=== PATIENT | male | born 1940 | race Caucasian/White ===

== ENCOUNTER 2017-02-20 07:32 | Emergency (ER) | payer OTHER ==
--- NOTE | 2017-02-20 07:47 | PDOC ---
History of Present Illness - General History Source: Patient, Family Exam Limitations: Clinical Condition - History of Present Illness Initial Comments: 02/20/17 09:54 The patient is a 76 year old male brought via EMS and presenting with his son, with a significant past medical history of, who presents to the emergency department with a possible stroke. Upon arrival EMS states that the patient went to bed at 11pm but awoke again around 3am to watch TV, going to sleep once again at 4:30am. The patient awoke this morning with the inability to get up from bed according to his son, as well as right sided facial droop and weakness on the left side of his body. Upon presentation the patient is unable to lift his left upper extremity and has severe difficulty in lifting his left lower extremity. The son notes that on baseline the patient is able to ambulate without difficulty or assistance and speak without difficulty. The patient is of Japanese decent and lives at home with son and . Allergies: None Past surgical history: None reported Social history: No alcohol, tobacco or drug use reported <Dano Wayne - Last Filed: 02/20/17 12:27> - General History Source: Patient, Family - History of Present Illness Initial Comments: 02/20/17 08:55 CORRECTION: Initially, the patient and patient's son had told us that the patient had went to bed at 11 PM yesterday night. However, after the head CT, the patient's son then had confirmed was that the patient had woke up at 4:00 in the morning in his usual state of health without complaint. He cannot go back to sleep so watch television. At 4:30, the patient went back to bed. He had repeated this to us several times and confirmed it. <Aydin Shahid - Last Filed: 03/07/17 08:19> - General Chief Complaint: CVA/TIA Stated Complaint: CVA/TIA Time Seen by Provider: 02/20/17 07:34 Past History <Dano Wayne - Last Filed: 02/20/17 12:27> <Aydin Shahid - Last Filed: 03/07/17 08:19> - Past Medical History Allergies/Adverse Reactions: Allergies Allergy/AdvReac Type Severity Reaction Status Date / Time No Known Allergies Allergy Verified 02/20/17 07:36 Review of Systems - Review of Systems Able to Perform ROS?: No Comments:: 02/20/17 09:55 ROS unable to obtain due to current medical condition <SalbernardoCathiDano Jennifer - Last Filed: 02/20/17 12:27> *Physical Exam - Vital Signs Last Vital Signs Temp Pulse Resp BP Pulse Ox 97.6 F 57 L 20 133/77 100 02/20/17 07:43 02/20/17 07:43 02/20/17 08:41 02/20/17 07:43 02/20/17 08:41 - Physical Exam Comments: 02/20/17 09:55 GENERAL: Awake, alert, and oriented HEAD: No signs of trauma, normocephalic, atraumatic EYES: PERRLA, EOMI, sclera anicteric, conjunctiva clear ENT: Auricles normal inspection, hearing grossly normal, nares patent, oropharynx clear without exudates. Moist mucosa NECK: Normal ROM, supple, no lymphadenopathy, JVD, or masses LUNGS: No distress, clear to auscultation bilaterally HEART: Regular rate and rhythm, normal S1 and S2, no murmurs, rubs or gallops, peripheral pulses normal and equal bilaterally. ABDOMEN: Soft, nontender, normoactive bowel sounds. No guarding, no rebound. No masses EXTREMITIES: Normal inspection, Normal range of motion, no edema. No clubbing or cyanosis. NEUROLOGICAL: (+) Refer to stroke scale. SKIN: Warm, Dry, normal turgor, no rashes or lesions noted. <Dano Wayne - Last Filed: 02/20/17 12:27> NIH Stroke Scale - Last Known Well Date/Time & Onset Date Last Known Well: 02/19/17 Time Last Known Well: 23:00 - Initial Evaluation Level of consciousness: Alert Ask patient the month and their age: Both incorrect Ask patient to open & close eyes; make fist and let go: Obeys both correctly Best gaze (horizontal eye movement): Partial gaze palsy Visual field testing: No visual field loss Facial paresis (Show teeth/raise eyebrows/close eyes tight): Partial paralysis ( total or near paralysis of lower face) Motor Function: Left Arm: No effort against gravity Motor Function: Right Arm: Normal (extends arm 90 (or 45) degrees for 10 seconds without drift Motor Function: Left Leg: No effort against gravity Motor Function: Right Leg: Normal (extends leg 30 degrees for 5 seconds without drift) Limb Ataxia: No ataxia Sensory(Use pinprick test arms,legs,trunk,face/side to side): Normal Best language (Describe picture, name items, read sentences): Mild to moderate aphasia Dysarthria (read several words): Mild to moderate slurring of words Extinction and Inattention: No abnormality - Total Score NIH Stroke Scale Score: 13 <Aydin Shahid - Last Filed: 03/07/17 08:19> tPA Exclusion Checklist 0-3hr - Time Elapsed Date last known well: 02/20/17 Time last known well: 04:30 Elaspsed time: 15 Day(s) and 3 Hour(s) and 49 Minutes - Thrombolytic Therapy Candidate Is the patient eligible for Thrombolytic Therapy?: No - Ineligibility reason(s) Reasons No tPA given: Outside of window - delayed arrival <Aydin Shahid - Last Filed: 03/07/17 08:19> tPA Exclusion checklist 3-4.5h - Time Elapsed Date last known well: 02/20/17 Time last known well: 04:30 Elaspsed time: 15 Day(s) and 3 Hour(s) and 49 Minutes - Thrombolytic Therapy Candidate Is patient eligible for thrombolytic therapy: Yes - Exclusion Criteria 3-4.5 hr SBP greater than 185 or DBP greater than 110mmHg despite tx: No Recent IC/spinal surgery,head trauma or stroke<3mos.: No Hx IC hemorrhage, IC neoplasm, AV malformation or aneurysm: No Active internal bleeding: No Blding diathesis(low plt ct, inc PTT,INR>1.7 or use of NOAC): No Symptoms suggest subarachnoid hemorrhage: No CT demonstrates multilobar infarct(>1/3 cerebral hemiphere): No Arterial puncture at noncompressible site in previous 7 days: No Blood glucose concentration less than 50mg/dL (2.7mmol/L): No - Relative Exclusion Criteria 3-4.5 hr Life expectancy <1 yr or severe co-morbid illness: No : No Patient/family refused: No Rapid improvement: No Stroke severity too mild: No Recent acute DE (w/in previous 3 months): No Seizure at onset with postictal residual neuro impairments: No Major surgery or serious trauma w/in previous 14 days: No Recent GI or hemorrhage (w/in previous 21 days): No - Add'l Relative Exclusion 3-4.5 hr Age > 80: No Hx of both diabetes AND prior ischemic stroke: No Taking an oral anticoagulant regardless of INR: No NIHSS >25: No <Aydin Shahid - Last Filed: 03/07/17 08:19> Heart Score/ECG Review #1 ECG reviewed & interpreted by me at: 07:40 02/20/17 09:00 NSR 57, no std/mahi, T wave flat III, normal axis, normal intervals, QTC 418 msec <Aydin Shahid - Last Filed: 03/07/17 08:19> Critical Care Time/MDM Note - Medical Decision Making Note: 02/20/17 08:[address] Reviewed by: Dr. Mega Elliott Impression: No evidence of acute intracranial hemorrhage, edema, midline shift, mass effect or skull fracture. No CT evidence of acute territorial infarction. Chest X-Ray Reviewed by: Dr. Mega Elliott Impression: No evidence of active pulmonary disease. Brain CTA Reviewed by: Dr. Kemar Thakkar Impression: There is no enhancement of the distal right internal carotid artery consistent with proximal occlusion / severe stenosis, the level of which should be determined with CTA of the neck. Normal enhancement of the right anterior and middle cerebral artery due to flow through the anterior communicating artery. <Dano Wayne - Last Filed: 02/20/17 12:27> Total Critical Care Time: 60 Critical Care Statement: The care of this patient involved high complexity decision making to prevent further life threatening deterioration of the patient 's condition and/or to evalute & treat vital organ system(s) failure or risk of failure. - Medical Decision Making Note: 02/20/17 07:48 A portion of this note was documented by scribe services under my direction. I have reviewed the details of the note, within reason, and agree with the documentation with the following case summary and management plan written by me. Patient treated in the ED. Nursing notes are reviewed and incorporated into the medical decision-making. Vital signs reviewed. Peripheral IV access obtained by the nurse, laboratory studies are drawn and sent, reviewed and interpreted by myself. Vital Signs Temp Pulse Resp BP Pulse Ox 97.6 F 57 L 20 133/77 100 02/20/17 07:43 02/20/17 07:43 02/20/17 07:43 02/20/17 07:43 02/20/17 07:43 76-year-old male with no past medical history, no primary care physician brought in by EMS for stroke. The patient was in his usual state health yesterday. Went to bed at 11 PM yesterday night. Woke up this morning and noticed that he was having difficulty moving his left side. EMS was activated and brought the patient to the ED. Patient denies any pain. However, patient is noted to have some left-sided neglect, left-sided facial droop, left upper and left lower extremity weakness concerning for right MCA stroke. Patient does not take any medications. The patient's son reports that the patient's typically speaks without difficulty and ambulate without difficulty. The patient is outside the window for TPA. However, code gurrola was activated as patient may potentially be a candidate for interventional endovascular therapy. NIHSS 13. We'll discuss the case with a neurologist once stat head CT is obtained. 02/20/17 09:03 After speaking with the patient's family again, the time of onset was actually at 4:30 AM. The patient awoke at 4:00 in morning in his usual state of health and cannot go to sleep so was watching television until 4:30 when he went to bed. So the patient is within the four and half hour window. Stat CT head negative for hemorrhage. And he qualified for TPA. I and spoken and discussed the case with Dr. Barrientos. Patient qualifies for TPA. States that plain this or bubble 100, patient can be TPA. I had a lengthy discussion regarding the risks and benefits of TPA with the patient's son and the patient. There is a 4-6% chance of bleeding with this medication. Patient's family and patient understands that this could potentially be fatal. The patient's consent for TPA. CBC, BMP 02/20/17 07:39 02/20/17 07:39 CMP Sodium 140 mmol/L (136-145) 02/20/17 07:39 Potassium 4.7 mmol/L (3.5-5.1) 02/20/17 07:39 Chloride 105 mmol/L (98-107) 02/20/17 07:39 Carbon Dioxide 25 mmol/L (21-32) 02/20/17 07:39 Anion Gap 10 (8-16) 02/20/17 07:39 BUN 27 mg/dL (7-18) H 02/20/17 07:39 Creatinine 1.2 mg/dL (0.7-1.3) 02/20/17 07:39 Creat Clearance w eGFR 59.02 (>60) 02/20/17 07:39 POC Glucometer 112.42728 UNITS (()) 02/20/17 07:41 Random Glucose 103 mg/dL (74-106) 02/20/17 07:39 Calcium 9.2 mg/dL (8.5-10.1) 02/20/17 07:39 Total Bilirubin 0.4 mg/dL (0.2-1.0) 02/20/17 07:39 AST 51 U/L (15-37) H 02/20/17 07:39 ALT 88 U/L (12-78) H 02/20/17 07:39 Alkaline Phosphatase 61 U/L (45-117) 02/20/17 07:39 Creatine Kinase 222 IU/L (39-308) 02/20/17 07:39 Creatine Kinase Index 1.7 % (0.0-5.0) 02/20/17 07:39 CK-MB (CK-2) 3.963 ng/ml (0.5-3.6) H 02/20/17 07:39 Troponin I < 0.02 ng/ml (0.00-0.05) 02/20/17 07:39 Total Protein 7.1 g/dl (6.4-8.2) 02/20/17 07:39 Albumin 3.9 g/dl (3.4-5.0) 02/20/17 07:39 Triglycerides 134 mg/dL (35-160) 02/20/17 07:39 Cholesterol 260 mg/dL (50-200) H 02/20/17 07:39 Total LDL Cholesterol 189 mg/dL (5-100) H 02/20/17 07:39 HDL Cholesterol 53 mg/dl (29-89) 02/20/17 07:39 TPA given at 8:32 am. (Within the 4.5 hour cleo). Will obtain a CTA head to see if pt has proximal occlusion that would potentially necessitate endovascular intervention. 02/20/17 12:12 CT angiogram of the brain demonstrates distal right internal carotid artery consistent with proximal occlusion. Has normal enhacement right CHE and MCA. Case is discussed with stroke fellow at [facility] Dr. Urrutia who accepts the patient for potential IR to [facility] under attending Dr. Carmona. Case discussed with ED attending Dr. Shea who accepts the patient. Family agrees with plan and for transfer. <Aydin Shahid - Last Filed: 03/07/17 08:19> Discharge Disposition - Transfer to Acute Care Facility Transfer comment: 02/20/17 10:08 Documentation prepared by Dano Wayne, acting as medical referral coordinator for Aydin Shahid MD <Dano Wayne - Last Filed: 02/20/17 12:27> - Transfer to Acute Care Facility Receiving Facility: [facility] Accepting Physician:: Dr. Cole <Aydin Shahid - Last Filed: 03/07/17 08:19> - Diagnosis Cerebrovascular accident (CVA) Qualifiers: CVA mechanism: occlusion Precerebral and cerebral artery: carotid artery Laterality of affected vessel: right Qualified Code(s): I63.231 - Cerebral infarction due to unspecified occlusion or stenosis of right carotid arteries - Discharge Dispostion Disposition: TRANSFER ACUTE CARE/OTHER HOSP Condition at time of disposition: Stable
[2017-02-20] MEDS ORDERED: ASPIRIN 325 MG TABLET ONE (08:04)
[2017-02-20] MEDS ORDERED: ALTEPLASE 100MG 100 MG IVPB ONE (08:11)
[2017-02-20 08:14] VITALS: BMI 27.3
[2017-02-20 08:18] LABS: BASOPHIL 0.6 % (0-2.0); EOSINOPHIL 2.4 % (0-4.5); MCH 28.4 pg (25.7-33.7); MCHC 33.5 g/dl (32.0-35.9); MEAN CELL VOLUME 84.9 fl (80-96); MEAN PLT VOLUME 7.8 fl (7.5-11.1); NEUTROPHILS 64.9 % (42.8-82.8); PLATELET COUNT 199 K/MM3 (134-434); RDW 14.1 % (11.9-15.9); WHITE BLOOD COUNT 6.6 K/mm3 (4.0-10.0)
[2017-02-20 08:25] LABS: CALCIUM 9.2 mg/dL (8.5-10.1)
[2017-02-20 08:26] LABS: ALBUMIN 3.9 g/dl (3.4-5.0); ANION GAP 10 (8-16); CO2 25 mmol/L (21-32); GLUCOSE,RANDOM 103 mg/dL (74-106)
[2017-02-20 08:29] LABS: CHOLESTEROL 260 mg/dL (50-200); COCKROFT - GAULT 61.42; CREATININE 1.2 mg/dL (0.7-1.3); SGOT/AST 51 U/L (15-37); SGPT/ALT 88 U/L (12-78)
[2017-02-20 08:31] LABS: ALK PHOS 61 U/L (45-117); BILIRUBIN,TOTAL 0.4 mg/dL (0.2-1.0); TOT PROT 7.1 g/dl (6.4-8.2)
[2017-02-20 08:33] LABS: LDL CHOLESTEROL (ONLY SJRH) 189 mg/dL (5-100)
[2017-02-20 08:34] LABS: INR 0.98 (0.82-1.09); PROTHROMBIN TIME (PATIENT) 10.8 SEC (9.98-11.88); TROPONIN I < 0.02 ng/ml (0.00-0.05)
[2017-02-20] MEDS ORDERED: ALTEPLASE 50 MG VIAL IVPB ONE ×2 (08:47)
--- NOTE | 2017-02-20 11:35 | CONSULT ---
Consult - text type - Consultation Consultation Note: Neurology History of Present Illness 76 year old male brought via EMS and presenting with his son, with a significant past medical history of, who presents to the emergency department with a possible stroke. Upon arrival EMS states that the patient went to bed at 11pm initially, the patient and patient's son had told the ER that the patient had went to bed at 11 PM yesterday night. However, after the head CT, the patient's son then had confirmed was that the patient had woke up at 4:00 in the morning in his usual state of health without complaint. At 4:30, the patient went back to bed. The patient completed CT head which did not show acute changes. I spoke with Dr. Shahid several times throughout and Dr. Shahid spoke to family in detail about TPA treatment for acute CVA. Recommended labs be confirmed and patient family be explained risks and benefits and they consented. Patient was given TPA within 4.[address] Shahid. During my visit/evaluation this morning no significant improvement in symptoms but no adverse events. *Physical Exam Last Vital Signs Temp Pulse Resp BP Pulse Ox 97.6 F 57 L 20 133/77 100 02/20/17 07:43 02/20/17 07:43 02/20/17 08:41 02/20/17 07:43 02/20/17 08:41 GENERAL: Awake, alert, and oriented HEAD: No signs of trauma, normocephalic, atraumatic EYES: PERRLA, EOMI, sclera anicteric, conjunctiva clear ENT: Auricles normal inspection, hearing grossly normal, nares patent, oropharynx clear without exudates. Moist mucosa NECK: Normal ROM, supple, no lymphadenopathy, JVD, or masses LUNGS: No distress, clear to auscultation bilaterally HEART: Regular rate and rhythm, normal S1 and S2, no murmurs, rubs or gallops, peripheral pulses normal and equal bilaterally. ABDOMEN: Soft, nontender, normoactive bowel sounds. No guarding, no rebound. No masses EXTREMITIES: Normal inspection, Normal range of motion, no edema. No clubbing or cyanosis. NEUROLOGICAL: (+) Refer to stroke scale. SKIN: Warm, Dry, normal turgor, no rashes or lesions noted. CBCD WBC 6.6 K/mm3 (4.0-10.0) 02/20/17 07:39 RBC 5.28 M/mm3 (4.00-5.60) 02/20/17 07:39 Hgb 15.0 GM/dL (11.7-16.9) 02/20/17 07:39 Hct 44.8 % (35.4-49) 02/20/17 07:39 MCV 84.9 fl (80-96) 02/20/17 07:39 MCHC 33.5 g/dl (32.0-35.9) 02/20/17 07:39 RDW 14.1 % (11.9-15.9) 02/20/17 07:39 Plt Count 199 K/MM3 (134-434) 02/20/17 07:39 MPV 7.8 fl (7.5-11.1) 02/20/17 07:39 CMP Sodium 140 mmol/L (136-145) 02/20/17 07:39 Potassium 4.7 mmol/L (3.5-5.1) 02/20/17 07:39 Chloride 105 mmol/L (98-107) 02/20/17 07:39 Carbon Dioxide 25 mmol/L (21-32) 02/20/17 07:39 Anion Gap 10 (8-16) 02/20/17 07:39 BUN 27 mg/dL (7-18) H 02/20/17 07:39 Creatinine 1.2 mg/dL (0.7-1.3) 02/20/17 07:39 Creat Clearance w eGFR 59.02 (>60) 02/20/17 07:39 Calcium 9.2 mg/dL (8.5-10.1) 02/20/17 07:39 Total Bilirubin 0.4 mg/dL (0.2-1.0) 02/20/17 07:39 AST 51 U/L (15-37) H 02/20/17 07:39 ALT 88 U/L (12-78) H 02/20/17 07:39 Alkaline Phosphatase 61 U/L (45-117) 02/20/17 07:39 Total Protein 7.1 g/dl (6.4-8.2) 02/20/17 07:39 Albumin 3.9 g/dl (3.4-5.0) 02/20/17 07:39 CT head without acute changes Plan: 76 year old male brought via EMS and presenting with his son, with a significant past medical history of, who presents to the emergency department with a possible stroke. Upon arrival EMS states that the patient went to bed at 11pm initially, the patient and patient's son had told the ER that the patient had went to bed at 11 PM yesterday night. However, after the head CT, the patient's son then had confirmed was that the patient had woke up at 4:00 in the morning in his usual state of health without complaint. At 4:30, the patient went back to bed. The patient completed CT head which did not show acute changes. I spoke with Dr. Shahid several times throughout and Dr. Shahid spoke to family in detail about TPA treatment for acute CVA. Recommended labs be confirmed and patient family be explained risks and benefits and they consented. Patient was given TPA within 4.[address] Shahid. During my visit/evaluation this morning no significant improvement in symptoms but no adverse events. Patient to have CTA head and if possible for neuro-interventional transfer, Dr. Shahid will coordinate If patient remains, then ICU placement Monitor BP, goal is <160/90, no permissive HTN for TPA cases Repeat CT head in AM to confirm no bleed from TPA Neuro checks Q1hr CD, Echo MRI brain Start ASA tomorrow (patient given TPA, hold antiplatelet) PT/OT/may need rehab placement Speech/Swallow eval Lipid panel, statin DVT ppx Critical care 70 mins
[2017-02-20 12:04] VITALS: BP 136/78
[2017-02-20 12:59] VITALS: PULSE 50; TEMP 98.6
--- NOTE | 2017-02-20 13:05 | EKG ---
Test Reason : Blood Pressure : / mmHG Vent. Rate : 057 BPM Atrial Rate : 057 BPM P-R Int : 184 ms QRS Dur : 092 ms QT Int : 430 ms P-R-T Axes : 009 001 027 degrees QTc Int : 418 ms SINUS BRADYCARDIA OTHERWISE NORMAL ECG NO PREVIOUS ECGS AVAILABLE Confirmed by SCOTT CHEUNG MD ([id number]) on 02/20/2017 1:04:51 PM Referred By: Confirmed By:SCOTT CHEUNG MD
== END 2017-02-20 12:59 | disposition short-term general hospital (02) ==
LOC: JER 07:32
PROC: 3E033GC Introduction of Other Therapeutic Substance into Peripheral Vein, Percutaneous Approach (ICD-10-PCS; principal; 2017-02-20)
DX: I63.231 Cerebral infarction due to unspecified occlusion or stenosis of right carotid arteries (principal)
CPT/HCPCS: 36415; 70450-TC; 70496-TC; 71010-TC; 80053; 82465; 82550; 82553; 83718; 83721; 84478; 84484; 85025; 85610; 86850; 86900; 86901; 93005; 93010; 99285-25; J2997

== ENCOUNTER 2017-03-17 10:29 | Emergency (ER) | payer SELFPAY ==
[2017-03-17 10:45] VITALS: PULSE 65; TEMP 98.1; BMI 28.8
--- NOTE | 2017-03-17 13:33 | PDOC ---
History of Present Illness - General Chief Complaint: Pain Stated Complaint: THIGH PAIN s/p stroke History Source: Patient, Family Exam Limitations: Language Barrier - History of Present Illness Initial Comments: 03/17/17 13:22 03/17/17 13:37 This is a 76 yo M with PMH CVA 02/20/17 (R sided facial droop, left sided weakness, s/p tpa), who presents with R inner thigh pain that started this morning when he moved his leg to get out of bed. Pain is new, intermittant, only present when pressing on the inner thigh in affected are and when flexing and externally rotating leg. it is nonradiating and sharp. Patient denies weakness, numbness, paresthesia, loss of bowel control, recent long travel, trauma. He denies h/a, chest pain, Loc, palpitations, cough, sob, abd pain, testicular pain, groin pain. 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 Since tpa, patient has no residual neuro deficit. 03/17/17 13:39 Past History - Past Medical History Allergies/Adverse Reactions: Allergies Allergy/AdvReac Type Severity Reaction Status Date / Time No Known Allergies Allergy Verified 03/17/17 10:40 Home Medications: Ambulatory Orders Aspirin [ASA -] 81 mg PO DAILY 03/17/17 Atorvastatin Ca [Lipitor] 80 mg PO HS 03/17/17 Cardiac Disorders: No CVA: Yes (lt sided, no weakness) HTN: No Hypercholesterolemia: Yes - Psycho/Social/Smoking Cessation Hx Anxiety: No Suicidal Ideation: No Smoking History: Never smoked Have you smoked in the past 12 months: No Information on smoking cessation initiated: No Hx Alcohol Use: No Drug/Substance Use Hx: No Substance Use Type: None Review of Systems - Review of Systems Able to Perform ROS?: Yes Is the patient limited Nepalese proficient: Yes Constitutional: No: Chills, Fever, Weakness HEENTM: No: Difficulty Swallowing Respiratory: No: Cough, Orthopnea, Shortness of Breath, Hemoptysis Cardiac (ROS): No: Chest Pain, Edema, Irregular Heart Rate, Lightheadedness, Palpitations, Syncope ABD/GI: No: Abdominal Distended, Constipated, Diarrhea, Nausea, Vomiting, Abdominal cramping : No: Dysuria, Flank Pain Musculoskeletal: Yes: Muscle Pain. No: Back Pain, Joint Pain Integumentary: No: Lesions, Lumps, Pruritus, Rash Neurological: No: Headache, Numbness, Paresthesia, Tingling, Weakness, Ataxia Psychiatric: No: Anxiety Endocrine: No: Change in Weight Hematologic/Lymphatic: No: Blood Clots, Easy Bleeding All Other Systems: Reviewed and Negative *Physical Exam - Vital Signs Last Vital Signs Temp Pulse Resp BP Pulse Ox 98.1 F 65 18 136/81 100 03/17/17 10:42 03/17/17 10:42 03/17/17 10:42 03/17/17 10:42 03/17/17 10:42 - Physical Exam Comments: 03/17/17 13:44 GENERAL: NAD, aao x 3 HEENT: PERRLA EOMI Sclera anicteric CV: rrr S1S2 Pulm: cta b/l GI, soft, nontender, nondistended, no mass Neuro CN II-XII grossly intact, LE strength 5/5 b/l, sensation intact Musculoskeletal: r inner thigh tenderness in gracilis muscle area, illicited by pressure or external rotation with flexion of hip. no cord, edema, adenopathy, mass. Medical Decision Making - Medical Decision Making 03/17/17 13:22 Patient presents with clinical picture most consistent with muscle strain/spasm , possibly gracilis. r/o dvt although low suspicion order venous dupplex RLE. Patient and family reassured 03/17/17 13:46 03/17/17 14:48 Duplex negative for dvt. patient to be dcd home *DC/Admit/Observation/Transfer Diagnosis at time of Disposition: Muscle strain - Discharge Dispostion Disposition: HOME Condition at time of disposition: Good Admit: No - Patient Instructions Printed Discharge Instructions: Muscle Strain Additional Instructions: you do not have a blood vlot in your leg vein and your pain is due to a strained muscle. take a warm bath and apply icy-hot ointment if needed. Return to ER if you develop numbness or weakness.
--- NOTE | 2017-03-17 14:40 | PDOC ---
Attending Attestation - Resident Resident Name: Sindy Joya - ED Attending Attestation I have performed the following: I have examined & evaluated the patient, The case was reviewed & discussed with the resident, I agree w/resident's findings & plan, Exceptions are as noted - HPI HPI: 03/17/17 14:37 76-year-old male with past medical history of stroke, which I had evaluated him for approximately 3 weeks ago and sent him to [facility], presents with right inner groin pain since morning. Patient woke up and felt pain worsened with movements. States that abducting his hip causes pain. Denies injuries or falls. Denies swelling. - Physicial Exam PE: 03/17/17 14:39 GENERAL: Awake, alert, and fully oriented, in no acute distress. HEAD: No signs of trauma EYES: PERRLA, EOMI, sclera anicteric, conjunctiva clear ENT: Auricles normal inspection, hearing grossly normal, nares patent, oropharynx clear without exudates. NECK: Normal ROM, supple, no lymphadenopathy, JVD, or masses LUNGS: Breath sounds equal, clear to auscultation bilaterally. No wheezes, and no crackles HEART: Regular rate and rhythm, normal S1 and S2, no murmurs, rubs or gallops ABDOMEN: Soft, nontender, normoactive bowel sounds. No guarding, no rebound. No masses EXTREMITIES: Normal range of motion, no edema. No clubbing or cyanosis. No cords, erythema. TTP along the right gracilus muscle. Reproduced with abducting of the right leg. NEUROLOGICAL: Cranial nerves II through XII grossly intact. Normal speech, normal gait SKIN: Warm, Dry, normal turgor, no rashes or lesions noted. - Medical Decision Making 03/17/17 14:40 Patient's family was initially concerned for DVT. However, I have low suspicion for DVT. I agree with the resident that a likely suspect that this is a pulled right gracilus/satorius muscle. If duplex ultrasound is negative, patient can go home with supportive care and follow-up with his PMD.
[2017-03-17 15:15] VITALS: BP 128/79
== END 2017-03-17 15:31 | disposition home or self-care (01) ==
LOC: JER 10:29
DX: S76.811A Strain of other specified muscles, fascia and tendons at thigh level, right thigh, initial encounter (principal); X50.0XXA Overexertion from strenuous movement or load, initial encounter; Y93.89 Activity, other specified; Y92.013 Bedroom of single-family (private) house as the place of occurrence of the external cause; I69.892 Facial weakness following other cerebrovascular disease; I69.854 Hemiplegia and hemiparesis following other cerebrovascular disease affecting left non-dominant side
CPT/HCPCS: 93971-TC; 99284-25

== ENCOUNTER 2019-10-25 12:43 | Emergency (ER) | payer OTHER ==
--- NOTE | 2019-10-25 12:57 | PDOC ---
Attending Attestation - Resident Resident Name: Benny Head - HPI HPI: 10/25/19 14:02 Pt presents to the ED complaining of an episode of lightheadness and decreased responsiveness that lasted approximately 5 minutes. As per family, patient's eyes were open but he was not responding to questions. Now has no complaints. 10/25/19 19:18 - Physicial Exam PE: 10/25/19 19:19 gen: alert, NAD CV: rrr no m/r/g Pulm: CTA b/l Neuro: aaox3, moving all extremities, CN grossly intact, speech fluent and clear. - Medical Decision Making 10/25/19 19:20 Pt presents to the ED complaining of episode of lightheadness and decreased responsiveness. Differential includes syncope and seizure. LAbs checked to evaluate for electrolyte disturbance or infecvtion and are normal. CT checked to evaluate for bleed or space occupying lesion and is negative. Will discharge home with instructions to follow up with PCP.
[2019-10-25 13:18] VITALS: BP 177/94; PULSE 65; TEMP 97.8; BMI 31.9
--- NOTE | 2019-10-25 13:22 | PDOC ---
History of Present Illness - General Chief Complaint: Lightheaded Stated Complaint: DIZZINESS Time Seen by Provider: 10/25/19 12:54 - History of Present Illness Initial Comments: Mr. Mary is a 79 y/o male with PMH significant for CVA with mild LLE deficit brought in by family today for generalized weakness. Per family, he was at baseline yesterday. This morning, they reported that he appeared a little more pale than usual, and had some difficult getting up from the couch. Denies any fall or focal weakness. Pt denies any complaints or concerns at this time. No headache/dizziness/nausea/vomiting/diarrhea/dysuria/abdominal pain. No chest pain/shortness of breath. Patient reports that he is feeling at his baseline at this time. A&Ox3. Patient able to ambulate to the bathroom with assistance, which is his baseline as well. No changes in speech. No focal weakness or facial asymmetry. Past History - Past Medical History Allergies/Adverse Reactions: Allergies Allergy/AdvReac Type Severity Reaction Status Date / Time No Known Allergies Allergy Verified 03/17/17 10:40 Home Medications: Ambulatory Orders Aspirin [ASA -] 81 mg PO DAILY 03/17/17 Atorvastatin Ca [Lipitor] 80 mg PO HS 03/17/17 Cardiac Disorders: No CVA: Yes (lt sided, no weakness) COPD: No HTN: No Hypercholesterolemia: Yes - Psycho Social/Smoking Cessation Hx Smoking History: Never smoked Have you smoked in the past 12 months: No Hx Alcohol Use: No Drug/Substance Use Hx: No Substance Use Type: None Review of Systems - Review of Systems Comments:: GENERAL/CONSTITUTIONAL: No fever or chills. Mild generalized weakness. HEAD, EYES, EARS, NOSE AND THROAT: No change in vision. No change in hearing. No sore throat._ CARDIOVASCULAR: No chest pain or shortness of breath_ RESPIRATORY: Denies cough, hemoptysis_ GASTROINTESTINAL: No nausea, vomiting, diarrhea or constipation._ GENITOURINARY: No dysuria, frequency, or change in urination._ MUSCULOSKELETAL: No joint or muscle swelling or pain. No neck or back pain._ SKIN: No rash_ NEUROLOGIC: No headache, vertigo, loss of consciousness, or change in strength/ sensation._ ENDOCRINE: No increased thirst. No abnormal weight change_ HEMATOLOGIC/LYMPHATIC: No anemia, easy bleeding, or history of blood clots._ ALLERGIC/IMMUNOLOGIC: No hives or skin allergy._ *Physical Exam - Vital Signs Last Vital Signs Temp Pulse Resp BP Pulse Ox 97.8 F 65 16 177/94 H 96 10/25/19 12:50 10/25/19 12:50 10/25/19 12:50 10/25/19 12:50 10/25/19 12:50 - Physical Exam GENERAL: Awake, alert, and oriented to person/place/time, in no acute distress_ HEAD: No signs of trauma, normoc ephalic, atraumatic _ EYES: PERRLA, EOMI, sclera anicteric, conjunctiva clear_ ENT: Hearing grossly normal, nares patent, oropharynx clear without exudates. No uvular deviation. Moist mucosa_ NECK: Normal ROM, supple, no lymphadenopathy, JVD, or masses_ LUNGS: No distress, speaks in full sentences, clear to auscultation bilaterally _ HEART: Regular rate and rhythm, normal S1 and S2, no murmurs appreciated, peripheral pulses normal and equal bilaterally._ ABDOMEN: Soft, nontender, normoactive bowel sounds. No guarding, no rebound. No masses_ EXTREMITIES: Normal inspection, Normal range of motion, no edema. No clubbing or cyanosis_ NEUROLOGICAL: CN II-XII tested and intact. Sensation intact to sharp/dull differentiation in all extremities. Motor: Normal tone and bulk. No abnormal movements appreciated. No pronator drift. Strength tested and 5/5 in bilateral wrist flexion/extension, elbow flexion/extension, shoulder abduction, straight leg raise, knee flexion/ extension, ankle dorsiflexion/plantarflexion. Patient ambulates with a steady gait with assistance. Coordination: Finger to nose and heel to rc testing intact bilaterally. SKIN: Warm, Dry, normal turgor, no rashes or lesions noted_ ED Treatment Course - LABORATORY CBC & Chemistry Diagram: 10/25/19 13:20 10/25/19 13:20 - RADIOLOGY Radiology Studies Ordered: Category Date Time Status CHEST PA & LAT [RAD] Stat Radiology 10/25/19 13:14 Ordered Medical Decision Making - Medical Decision Making 10/25/19 13:24 EKG shows NSR, 65 bpm, no ST elevation, no axis deviation, QTc 426. 10/25/19 13:39 79M hx of CVA brought in by family today for generalized weakness. -cbc, cmp -ekg, trop, cxr -ua, ucx -IV fluids 10/25/19 13:50 Pt reassessed. Mildly unsteady when standing, but denies weakness, lightheadness , dizziness. Supine 159/83, HR 69 Sitting 153/82, HR 71 Standing 167/104, HR 80 10/25/19 17:31 CT head shows no acute intra cranial pathology, chronic right thalamic infarct compared to 2017. CXR shows no acute intra thoracic pathology. Labs reviewed. Pt reports feeling much improved. Plan to d/c home with PCP f/u for TSH levels. All questions answered. Return precautions given. Pt and family verbalized understanding and agreement with plan. Laboratory Tests 10/25/19 10/25/19 10/25/19 13:20 13:20 13:20 WBC 7.0 RBC 5.93 H Hgb 16.6 Hct 50.0 H MCV 84.3 MCH 28.0 MCHC 33.3 RDW 14.2 Plt Count 248 D MPV 7.6 Absolute Neuts (auto) 4.2 Neutrophils % 60.0 Lymphocytes % 28.1 Monocytes % 8.6 Eosinophils % 2.6 Basophils % 0.7 Nucleated RBC % 0 Sodium 138 Potassium 4.5 Chloride 105 Carbon Dioxide 27 Anion Gap 5 L BUN 21.3 H Creatinine 1.5 H Est GFR (CKD-EPI)AfAm 50.95 Est GFR (CKD-EPI)NonAf 43.96 Random Glucose 104 Calcium 9.1 Total Bilirubin 0.5 AST 32 ALT 63 H Alkaline Phosphatase 79 Creatine Kinase 132 Troponin I < 0.02 Total Protein 7.4 Albumin 3.9 TSH 17.90 H Urine Color Urine Appearance Urine pH Ur Specific [place] Urine Protein Urine Glucose (UA) Urine Ketones Urine Blood Urine Nitrite Urine Bilirubin Urine Urobilinogen Ur Leukocyte Esterase Urine WBC (Auto) Urine RBC (Auto) Urine Casts (Auto) U Epithel Cells (Auto) Urine Bacteria (Auto) 10/25/19 13:20 WBC RBC Hgb Hct MCV MCH MCHC RDW Plt Count MPV Absolute Neuts (auto) Neutrophils % Lymphocytes % Monocytes % Eosinophils % Basophils % Nucleated RBC % Sodium Potassium Chloride Carbon Dioxide Anion Gap BUN Creatinine Est GFR (CKD-EPI)AfAm Est GFR (CKD-EPI)NonAf Random Glucose Calcium Total Bilirubin AST ALT Alkaline Phosphatase Creatine Kinase Troponin I Total Protein Albumin TSH Urine Color Yellow Urine Appearance Clear Urine pH 5.0 Ur Specific [place] 1.020 Urine Protein Trace Urine Glucose (UA) Negative Urine Ketones Negative Urine Blood 2+ H Urine Nitrite Negative Urine Bilirubin Negative Urine Urobilinogen 0.2 Ur Leukocyte Esterase Negative Urine WBC (Auto) 1 Urine RBC (Auto) 4 Urine Casts (Auto) 4 U Epithel Cells (Auto) 0.6 Urine Bacteria (Auto) 1.2 Discharge - Discharge Information Problems reviewed: Yes Clinical Impression/Diagnosis: Dehydration Condition: Stable Disposition: HOME - Admission No - Follow up/Referral Referrals: Zak Hernandez MD [Staff Physician] - - Patient Discharge Instructions Additional Instructions: Please make a follow up appointment with your primary care doctor to follow up your thyroid levels. A referral has been provided here for you. If you experience any new, worsening or concerning symptoms, including weakness , loss of sensation, lethargy, disorientation, or any other concerns, please return to the emergency department. - Post Discharge Activity
[2019-10-25] MEDS ORDERED: SODIUM CHLORIDE 0.9% 500 ML INFUS.BAG IV ONE (13:30)
[2019-10-25 13:53] LABS: EPI CELLS 0.6 /HPF (0-5/HPF); HYALINE CASTS 4 /lpf (0-8); URINE APPEARANCE CLEAR; URINE BACTERIA 1.2 /hpf (NEGATIVE); URINE BILIRUBIN NEGATIVE (NEGATIVE); URINE COLOR YELLOW; URINE GLUCOSE (UA) NEGATIVE (NEGATIVE); URINE KETONE NEGATIVE (NEGATIVE); URINE LEUK ESTERASE NEGATIVE (NEGATIVE); URINE NITRITE NEGATIVE (NEGATIVE); URINE PROTEIN TRACE (NEGATIVE); URINE RBC 4 /hpf (0-4); URINE UROBILINOGEN 0.2 mg/dL (0.2-1.0); URINE WBC 1 /hpf (0-5)
[2019-10-25 13:54] LABS: BASO % 0.7 % (0-2.0); EOS % 2.6 % (0-4.5); HEMOGLOBIN 16.6 GM/dL (11.7-16.9); LYMPH % 28.1 % (8-40); MCHC 33.3 g/dl (32.0-35.9); MEAN CELL VOLUME 84.3 fl (80-96); MEAN PLT VOLUME 7.6 fl (7.5-11.1); MONO % 8.6 % (3.8-10.2); PLATELET COUNT 248 K/MM3 (134-434); RBC 5.93 M/mm3 (4.00-5.60); RDW 14.2 % (11.9-15.9)
[2019-10-25 14:46] LABS: ALBUMIN 3.9 g/dl (3.4-5.0); BILIRUBIN,TOTAL 0.5 mg/dL (0.2-1); BLOOD UREA NITROGEN 21.3 mg/dL (7-18); CALCIUM 9.1 mg/dL (8.5-10.1); CREATININE 1.5 mg/dL (0.55-1.3); POTASSIUM 4.5 mmol/L (3.5-5.1); TOT PROT 7.4 g/dl (6.4-8.2)
--- NOTE | 2019-10-25 15:47 | EKG ---
Test Reason : Blood Pressure : / mmHG Vent. Rate : 065 BPM Atrial Rate : 065 BPM P-R Int : 182 ms QRS Dur : 096 ms QT Int : 410 ms P-R-T Axes : 009 -17 031 degrees QTc Int : 426 ms NORMAL SINUS RHYTHM SEPTAL INFARCT , AGE UNDETERMINED ABNORMAL ECG WHEN COMPARED WITH ECG OF 20-FEB-2017 07:35, NONSPECIFIC T WAVE ABNORMALITY NO LONGER EVIDENT IN ANTERIOR LEADS Confirmed by Wes Ren ([id number]) on 10/25/2019 3:47:05 PM Referred By: Confirmed By:Wes Ren
== END 2019-10-25 17:38 | disposition home or self-care (01) ==
LOC: JER 12:43
DX: E86.0 Dehydration (principal); I69.854 Hemiplegia and hemiparesis following other cerebrovascular disease affecting left non-dominant side; E78.00 Pure hypercholesterolemia, unspecified; Z79.82 Long term (current) use of aspirin
CPT/HCPCS: 36415; 70450-TC; 71045-TC-FY; 80053; 81003; 82550; 84443; 84484; 85025; 87086; 93005; 93010; 99281-25

== ENCOUNTER 2019-11-10 22:44 | Inpatient (IN) | payer OTHER ==
[2019-11-10 23:33] LABS: BASO % 1.4 % (0-2.0); EOS % 2.6 % (0-4.5); HEMATOCRIT 47.1 % (35.4-49); HEMOGLOBIN 15.7 GM/dL (11.7-16.9); LYMPH % 37.2 % (8-40); MCHC 33.3 g/dl (32.0-35.9); MEAN PLT VOLUME 7.6 fl (7.5-11.1); NEUT % 49.8 % (42.8-82.8); PLATELET COUNT 248 K/MM3 (134-434); RBC 5.61 M/mm3 (4.00-5.60); RDW 14.6 % (11.9-15.9); WHITE BLOOD COUNT 8.6 K/mm3 (4.0-10.0)
[2019-11-10 23:45] LABS: INR 1.01 (0.83-1.09); PROTHROMBIN TIME (PATIENT) 11.9 SEC (9.7-13.0)
[2019-11-10 23:48] LABS: ACTIVATED PTT 36.3 SECONDS (25.2-36.5)
[2019-11-10 23:57] LABS: ALBUMIN 3.7 g/dl (3.4-5.0); BILIRUBIN,TOTAL 0.5 mg/dL (0.2-1); BLOOD UREA NITROGEN 22.3 mg/dL (7-18); CALCIUM 9.2 mg/dL (8.5-10.1); CREATININE 1.2 mg/dL (0.55-1.3); MAGNESIUM 1.9 mg/dL (1.8-2.4); POTASSIUM 3.9 mmol/L (3.5-5.1)
[2019-11-11 00:03] LABS: N-TERMINAL BNP 148.5 pg/ml (5-450)
--- NOTE | 2019-11-11 00:04 | PDOC ---
Documentation entered by Beka Davidson SCRIBE, acting as scribe for Milagro Terrazas DO. Milagro Terrazas DO: This documentation has been prepared by the Stuart toro Xhesika, SCRIBE, under my direction and personally reviewed by me in its entirety. I confirm that the documentation accurately reflects all work, treatment, procedures, and medical decision making performed by me. Attending Attestation - Resident Resident Name: Steve Stewart - ED Attending Attestation I have performed the following: I have examined & evaluated the patient, The case was reviewed & discussed with the resident, I agree w/resident's findings & plan, Exceptions are as noted - HPI HPI: 11/10/19 23:46 The patient is a 79 year old male with a significant PMH of CVA with mild LLE deficit who presents to the emergency department for L arm weakness since yesterday. Patient is a poor historian, but his son at bedside provides history. Son at bedside states the patient has been endorsing associated L leg weakness in terms of walking and has been more confused lately. The patient denies chest pain, shortness of breath, headache and dizziness. Denies fever, chills, cough, nausea, vomiting, diarrhea and constipation. Denies dysuria, frequency, urgency and hematuria. Allergies: NKDA - Physicial Exam PE: 11/10/19 23:46 GENERAL: Awake, alert, and fully oriented, in no acute distress HEAD: No signs of trauma EYES: PERRLA, EOMI, sclera anicteric, conjunctiva clear ENT: Auricles normal inspection, hearing grossly normal, nares patent, oropharynx clear without exudates. Moist mucosa NECK: Normal ROM, supple, no lymphadenopathy, JVD, or masses LUNGS: Breath sounds equal, clear to auscultation bilaterally. No wheezes, and no crackles HEART: Regular rate and rhythm, normal S1 and S2, no murmurs, rubs or gallops ABDOMEN: Soft, nontender, normoactive bowel sounds. No guarding, no rebound. No masses EXTREMITIES: Normal range of motion, no edema. No clubbing or cyanosis. No cords, erythema, or tenderness NEUROLOGICAL: Cranial nerves II through XII grossly intact. 5/5 strength and sensation of bilateral upper extremity. SKIN: Warm, Dry, normal turgor, no rashes or lesions noted. - Medical Decision Making 11/11/19 00:01 a/p: 79yo male with L arm weakness yesterday presents with his son debra -pt with prior hx of cva in the past resulting in L sided weakness -pt states unable to lift his arm yesterday -improved today -pt currently NIH 0 -no tpa -will send for head ct, labs, ekg, cxr -will send ua -will need TIA workup -will monitor and reassess 11/11/19 01:[address] neg labs reviewed tsh elevated, will add free t4 11/11/19 01:34 cxr negative but with motion artifact 11/11/19 02:04 ua neg microblog [facility] for tia work up Heart Score/ECG Review - ECG Intrepretation Comment:: 11/11/19 00:03 sinus rojas at 51, nl axis, lvh, q waves septally which are age indeterminate, no acute st/t wave findings NIH Stroke Scale - Last Known Well Date/Time & Onset Date Last Known Well: 11/09/19 - Initial Evaluation Level of consciousness: Alert Ask patient the month and their age: Answers both correctly Ask patient to open & close eyes; make fist and let go: Obeys both correctly Best gaze (horizontal eye movement): Normal Visual field testing: No visual field loss Facial paresis (Show teeth/raise eyebrows/close eyes tight): Normal symmetrical movement Motor Function: Left Arm: Normal Motor Function: Right Arm: Normal (extends arm 90 (or 45) degrees for 10 seconds without drift Motor Function: Left Leg: Normal (extends leg 30 degrees for 5 seconds without drift) Motor Function: Right Leg: Normal (extends leg 30 degrees for 5 seconds without drift) Limb Ataxia: No ataxia Sensory(Use pinprick test arms,legs,trunk,face/side to side): Normal Best language (Describe picture, name items, read sentences): No Aphasia Dysarthria (read several words): Normal articulation Extinction and Inattention: No abnormality - Total Score NIH Stroke Scale Score: 0 tPA Exclusion checklist 3-4.5h - Time Elapsed Date last known well: 11/09/19 - Thrombolytic Therapy Candidate Is patient eligible for thrombolytic therapy: No - Ineligibility reason(s) Reasons No tPA given: Outside of window - delayed arrival (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
--- NOTE | 2019-11-11 00:13 | PDOC ---
History of Present Illness - General Chief Complaint: Weakness Stated Complaint: WEAKNESS Time Seen by Provider: 11/10/19 23:16 History Source: Patient Exam Limitations: No Limitations - History of Present Illness Initial Comments: 11/11/19 00:13 79 y/o male with PMH significant for CVA with mild LLE deficit accompanied by family presents to the emergency department with LUE weakness that has been ongoing since yesterday. Per the son at bedside, the patient has been endorsing concurrent left leg weakness for the past 2 days, which is notable when he is ambulating. Per the patient, he denies generalized weakness and the following concurrent symptoms: fever, chills, SOB, chest pain, palpitations, nausea, vomiting, dysuria, hematuria, diarrhea, abdominal pain, headache, lightheadedness, and visual disturbance. Of note, the son stated his father ( the patient) has been more confused lately, mixing directions. Past History - Past Medical History Allergies/Adverse Reactions: Allergies Allergy/AdvReac Type Severity Reaction Status Date / Time No Known Allergies Allergy Verified 11/10/19 22:55 Home Medications: Ambulatory Orders Aspirin [ASA -] 81 mg PO DAILY 03/17/17 Atorvastatin Ca [Lipitor] 80 mg PO HS 03/17/17 Cardiac Disorders: No CVA: Yes (lt sided, no weakness) COPD: No HTN: No Hypercholesterolemia: Yes - Psycho Social/Smoking Cessation Hx Smoking History: Never smoked Have you smoked in the past 12 months: No Information on smoking cessation initiated: No Hx Alcohol Use: No Drug/Substance Use Hx: No Substance Use Type: None Review of Systems - Review of Systems Able to Perform ROS?: Yes Is the patient limited Albanian proficient: No Constitutional: No: Chills, Diaphoresis, Fever, Weakness HEENTM: No: Eye Pain, Ear Pain, Nose Pain, Throat Pain, Mouth Pain Respiratory: No: Cough, Shortness of Breath, Hemoptysis Cardiac (ROS): No: Chest Pain, Lightheadedness, Palpitations, Chest Tightness ABD/GI: No: Constipated, Diarrhea, Nausea, Rectal Bleeding, Vomiting, Tarry Stools : No: Burning, Dysuria, Hematuria Musculoskeletal: Yes: Muscle Weakness (LLE weakness at baseline. LUE weakness). No: Back Pain, Joint Pain, Neck Pain Integumentary: No: Bruising, Erythema, Rash Neurological: No: Headache, Numbness, Tingling, Tremors Psychiatric: No: Change in Appetite Endocrine: No: Unexplained Weight Loss Hematologic/Lymphatic: No: Anemia *Physical Exam - Vital Signs Last Vital Signs Temp Pulse Resp BP Pulse Ox 97.5 F L 53 L 16 131/61 96 11/10/19 22:53 11/10/19 22:53 11/10/19 22:53 11/10/19 22:53 11/10/19 22:53 - Physical Exam General Appearance: Yes: Nourished, Appropriately Dressed. No: Apparent Distress, Intoxicated HEENT: positive: EOMI, HARITHA, Normal ENT Inspection, Normal Voice, Symmetrical, TMs Normal, Pharynx Normal, Hearing Grossly Normal. negative: Pale Conjunctivae , Scleral Icterus (R), Scleral Icterus (L), Muffled/Hoarse voice, Pharyngeal Erythema, Tonsillar Exudate, Tonsillar Erythema, Nasal Congestion, Rhinorrhea, Sinus Tenderness, Excessive drooling Neck: positive: Trachea midline, Supple. negative: Tender, Lymphadenopathy (R) , Lymphadenopathy (L), Tender lateral, Tender midline Respiratory/Chest: positive: Lungs Clear, Normal Breath Sounds. negative: Chest Tender, Respiratory Distress, Accessory Muscle Use Cardiovascular: positive: Regular Rhythm, S1, S2, Bradycardia. negative: Systolic Murmur Gastrointestinal/Abdominal: positive: Normal Bowel Sounds, Flat, Soft. negative : Tender Lymphatic: negative: Adenopathy Musculoskeletal: positive: Normal Inspection. negative: CVA Tenderness, Vertebral Tenderness Extremity: positive: Normal Capillary Refill, Normal Inspection, Normal Range of Motion. negative: Tender, Swelling, Calf Tenderness Integumentary: positive: Normal Color, Dry, Warm Neurologic: positive: care rep II-XII NML intact, Fully Oriented, Alert, Normal Mood/ Affect, Normal Response, Motor Strength 5/5, Finger to Nose (intact b/l). negative: EOM Palsy, Facial Droop, Numbness, Sensory Deficit ED Treatment Course - LABORATORY CBC & Chemistry Diagram: 11/11/19 06:50 11/11/19 06:50 - ADDITIONAL ORDERS Additional order review: Laboratory Results 11/10/19 11/10/19 11/10/19 23:29 23:13 23:13 PT with INR 11.90 INR 1.01 PTT (Actin FS) 36.3 Sodium Potassium Chloride Carbon Dioxide Anion Gap BUN Creatinine Est GFR (CKD-EPI)AfAm Est GFR (CKD-EPI)NonAf POC Glucometer 71 Random Glucose Calcium Magnesium Total Bilirubin AST ALT Alkaline Phosphatase B-Natriuretic Peptide 148.5 Total Protein Albumin TSH 43.40 H D 11/10/19 23:13 PT with INR INR PTT (Actin FS) Sodium 141 Potassium 3.9 Chloride 109 H Carbon Dioxide 25 Anion Gap 7 L BUN 22.3 H Creatinine 1.2 Est GFR (CKD-EPI)AfAm 66.73 Est GFR (CKD-EPI)NonAf 57.57 POC Glucometer Random Glucose 69 L Calcium 9.2 Magnesium 1.9 Total Bilirubin 0.5 AST 24 ALT 50 Alkaline Phosphatase 69 B-Natriuretic Peptide Total Protein 7.0 Albumin 3.7 TSH 11/10/19 11/10/19 23:29 23:13 RBC 5.61 H MCV 84.0 MCHC 33.3 RDW 14.6 MPV 7.6 Neutrophils % 49.8 Lymphocytes % 37.2 D Monocytes % 9.0 Eosinophils % 2.6 Basophils % 1.4 POC Glucometer 71 Medical Decision Making - Medical Decision Making 79 y/o male with PMH significant for CVA with mild LLE deficit accompanied by family presents to the emergency department with LUE weakness that has been ongoing since yesterday. Initial vitals: Initial Vital Signs Temp Pulse Resp BP Pulse Ox 97.5 F L 53 L 16 131/61 96 11/10/19 22:53 11/10/19 22:53 11/10/19 22:53 11/10/19 22:53 11/10/19 22:53 Work up: patient presents to the emergency department with LUE weakness since yesterday Per the patient's timeline, the patient is not a candidate for code gurrola given outside the time frame and improvement of LUE weakness (was unable to lift it yesterday but can today). No tpa will be gien. NIHSS scale is 0 The patient has weakness in the arm. Will obtain head CT to rule out infarct vs hemorrhagic stroke. Patient denies palpitations and chest pain. Will obtain blood work to assess metabolic status which can cause weakness. Laboratory Tests 11/10/19 11/10/19 11/10/19 23:13 23:13 23:13 WBC 8.6 RBC 5.61 H Hgb 15.7 Hct 47.1 MCV 84.0 MCH 28.0 MCHC 33.3 RDW 14.6 Plt Count 248 MPV 7.6 Absolute Neuts (auto) 4.3 Neutrophils % 49.8 Lymphocytes % 37.2 D Monocytes % 9.0 Eosinophils % 2.6 Basophils % 1.4 Nucleated RBC % 0 PT with INR INR PTT (Actin FS) Sodium 141 Potassium 3.9 Chloride 109 H Carbon Dioxide 25 Anion Gap 7 L BUN 22.3 H Creatinine 1.2 Est GFR (CKD-EPI)AfAm 66.73 Est GFR (CKD-EPI)NonAf 57.57 POC Glucometer Random Glucose 69 L Calcium 9.2 Magnesium 1.9 Total Bilirubin 0.5 AST 24 ALT 50 Alkaline Phosphatase 69 B-Natriuretic Peptide 148.5 Total Protein 7.0 Albumin 3.7 TSH 43.40 H D Free T4 0.72 L Urine Color Urine Appearance Urine pH Ur Specific [place] Urine Protein Urine Glucose (UA) Urine Ketones Urine Blood Urine Nitrite Urine Bilirubin Urine Urobilinogen Ur Leukocyte Esterase Urine WBC (Auto) Urine RBC (Auto) Urine Casts (Auto) U Epithel Cells (Auto) Urine Bacteria (Auto) 11/10/19 11/10/19 11/11/19 23:13 23:29 01:36 WBC RBC Hgb Hct MCV MCH MCHC RDW Plt Count MPV Absolute Neuts (auto) Neutrophils % Lymphocytes % Monocytes % Eosinophils % Basophils % Nucleated RBC % PT with INR 11.90 INR 1.01 PTT (Actin FS) 36.3 Sodium Potassium Chloride Carbon Dioxide Anion Gap BUN Creatinine Est GFR (CKD-EPI)AfAm Est GFR (CKD-EPI)NonAf POC Glucometer 71 Random Glucose Calcium Magnesium Total Bilirubin AST ALT Alkaline Phosphatase B-Natriuretic Peptide Total Protein Albumin TSH Free T4 Urine Color Yellow Urine Appearance Clear Urine pH 5.0 Ur Specific [place] 1.023 Urine Protein Negative Urine Glucose (UA) 1+ H Urine Ketones Negative Urine Blood 1+ H Urine Nitrite Negative Urine Bilirubin Negative Urine Urobilinogen 0.2 Ur Leukocyte Esterase Negative Urine WBC (Auto) 1 Urine RBC (Auto) 2 Urine Casts (Auto) 4 U Epithel Cells (Auto) 0.6 Urine Bacteria (Auto) 1.7 Patient has borderline low glucose at 71 TSH elevated with low T4 consistent with hypothyroidism EKG: sinus bradycardia with q waves in V1-V2 which were present beforehand. No ST elevations or depressions Per imaging special investigation unit investigator report, head ct is negative for acute pathologies. Patient to be admitted to telemetry for suspected CVA vs TIA. Will need neurology work up and likely MRI. Discharge - Discharge Information Problems reviewed: Yes Clinical Impression/Diagnosis: TIA (transient ischemic attack) Condition: Fair - Follow up/Referral - Patient Discharge Instructions - Post Discharge Activity
[2019-11-11] MEDS ORDERED: DEXTROSE 50%-WATER - 25 GM/50 ML VIAL IVPUSH ONE (01:09)
[2019-11-11] MEDS ORDERED: DEXTROSE 50%-WATER 25 GM/50 ML DISP.SYRIN ONE (01:16)
[2019-11-11 01:54] LABS: EPI CELLS 0.6 /HPF (0-5/HPF); HYALINE CASTS 4 /lpf (0-8); URINE APPEARANCE CLEAR; URINE BACTERIA 1.7 /hpf (NEGATIVE); URINE BILIRUBIN NEGATIVE (NEGATIVE); URINE COLOR YELLOW; URINE GLUCOSE (UA) 1+ (NEGATIVE); URINE KETONE NEGATIVE (NEGATIVE); URINE LEUK ESTERASE NEGATIVE (NEGATIVE); URINE NITRITE NEGATIVE (NEGATIVE); URINE PROTEIN NEGATIVE (NEGATIVE); URINE RBC 2 /hpf (0-4); URINE UROBILINOGEN 0.2 mg/dL (0.2-1.0); URINE WBC 1 /hpf (0-5)
--- NOTE | 2019-11-11 03:00 | HP ---
<Nanda Loaiza - Last Filed: 11/11/19 05:58> CHIEF COMPLAINT: LUE weakness PCP: non [facility] HISTORY OF PRESENT ILLNESS: 79 y.o. M PMH CVA w/ LLE residual deficits presenting for new onset LUE weakness as well as increasing LLE weakness. This has been present for about 1 day. Patient is solely maori speaking, son present at bedside for translation. The patient does not regularly follow up with doctors and as per son was putting off these symptoms as he did not want to come to the hospital, but finally was convinced by his son to come to the ED. As per son he has also been a bit forgetful over the past few weeks. On ROS, denies any pain/ headaches / SOB/ palpitations/ cough/ nausea/ vomiting/ dizziness/ sensory deficits/ myalgias/ urinary or bowel changes/ weight changes. ER course was notable for: (1) CT Head: negative for acute bleeds or infarct (2) NIHSS 3 Recent Travel: denies PAST MEDICAL HISTORY: as per hpi PAST SURGICAL HISTORY: denies Social History: Smoking: denies Alcohol:denies Drugs: denies Allergies No Known Allergies Allergy (Verified 11/10/19 22:55) HOME MEDICATIONS: Home Medications Medication Instructions Recorded Aspirin [ASA -] 81 mg PO DAILY 03/17/17 Atorvastatin Ca [Lipitor] 80 mg PO HS 03/17/17 PHYSICAL EXAMINATION Vital Signs - 24 hr 11/10/19 22:53 Temperature 97.5 F L Pulse Rate 53 L Respiratory 16 Rate Blood Pressure 131/61 O2 Sat by Pulse 96 Oximetry (%) GENERAL: Awake, alert, and fully oriented, in no acute distress. HEENT: NCAT. Scler anicteric. MMM. EOMI. PERRLA. LUNGS: Breath sounds equal, clear to auscultation bilaterally. No wheezes, and no crackles. No accessory muscle use. HEART: Regular rate and rhythm, normal S1 and S2 without murmur, rub or gallop. ABDOMEN: Soft, nontender, not distended, normoactive bowel sounds EXTREMITIES: 2+ pulses, warm, well-perfused. No peripheral edema. NEUROLOGICAL: Cranial nerves II-XII intact. Normal speech. Normal gait. LUE & LLE motor drift, 4/5 strength & handgrip. R extremities 5/ motor. Sensory intact throughout. PSYCHIATRIC: Cooperative. Good eye contact. Appropriate mood and affect. SKIN: Warm, dry, normal turgor, no rashes or lesions noted, normal capillary refill. Laboratory Results - last 24 hr 11/10/19 11/10/19 11/10/19 23:13 23:13 23:13 WBC 8.6 RBC 5.61 H Hgb 15.7 Hct 47.1 MCV 84.0 MCH 28.0 MCHC 33.3 RDW 14.6 Plt Count 248 MPV 7.6 Absolute Neuts (auto) 4.3 Neutrophils % 49.8 Lymphocytes % 37.2 D Monocytes % 9.0 Eosinophils % 2.6 Basophils % 1.4 Nucleated RBC % 0 PT with INR INR PTT (Actin FS) Sodium 141 Potassium 3.9 Chloride 109 H Carbon Dioxide 25 Anion Gap 7 L BUN 22.3 H Creatinine 1.2 Est GFR (CKD-EPI)AfAm 66.73 Est GFR (CKD-EPI)NonAf 57.57 POC Glucometer Random Glucose 69 L Calcium 9.2 Magnesium 1.9 Total Bilirubin 0.5 AST 24 ALT 50 Alkaline Phosphatase 69 B-Natriuretic Peptide 148.5 Total Protein 7.0 Albumin 3.7 TSH 43.40 H D Free T4 0.72 L Urine Color Urine Appearance Urine pH Ur Specific [place] Urine Protein Urine Glucose (UA) Urine Ketones Urine Blood Urine Nitrite Urine Bilirubin Urine Urobilinogen Ur Leukocyte Esterase Urine WBC (Auto) Urine RBC (Auto) Urine Casts (Auto) U Epithel Cells (Auto) Urine Bacteria (Auto) 11/10/19 11/10/19 11/11/19 23:13 23:29 01:36 WBC RBC Hgb Hct MCV MCH MCHC RDW Plt Count MPV Absolute Neuts (auto) Neutrophils % Lymphocytes % Monocytes % Eosinophils % Basophils % Nucleated RBC % PT with INR 11.90 INR 1.01 PTT (Actin FS) 36.3 Sodium Potassium Chloride Carbon Dioxide Anion Gap BUN Creatinine Est GFR (CKD-EPI)AfAm Est GFR (CKD-EPI)NonAf POC Glucometer 71 Random Glucose Calcium Magnesium Total Bilirubin AST ALT Alkaline Phosphatase B-Natriuretic Peptide Total Protein Albumin TSH Free T4 Urine Color Yellow Urine Appearance Clear Urine pH 5.0 Ur Specific [place] 1.023 Urine Protein Negative Urine Glucose (UA) 1+ H Urine Ketones Negative Urine Blood 1+ H Urine Nitrite Negative Urine Bilirubin Negative Urine Urobilinogen 0.2 Ur Leukocyte Esterase Negative Urine WBC (Auto) 1 Urine RBC (Auto) 2 Urine Casts (Auto) 4 U Epithel Cells (Auto) 0.6 Urine Bacteria (Auto) 1.7 ASSESSMENT/PLAN: 79 y.o. M PMH CVA w/ LLE residual deficits presenting for new onset left sided weakness #CVA -CT head [facility] read negative for acute infarct or bleeds -giving 325mg ASA -high dose statin -neuro consulted-- dr. dover -f/u echo, carotid duplex -f/u brain mra non con -on no home meds -f/u lipid panel #Hypothyroidism -no reports of hypothyroid history -may benefit from initiating thyroid therapy -PCP f/u on discharge #FEN -no standing fluids -trend lytes replete prn -sodium controlled diet-- f/u S&S #PPX -heparin sq ATTENDING PHYSICIAN STATEMENT I saw and evaluated the patient. I reviewed the resident's note and discussed the case with the resident. I agree with the resident's findings and plan as documented. SUBJECTIVE: OBJECTIVE: ASSESSMENT AND PLAN: <Johnnie Joe - Last Filed: 11/11/19 06:17> CHIEF COMPLAINT: PCP: HISTORY OF PRESENT ILLNESS: ER course was notable for: (1) (2) (3) Recent Travel: PAST MEDICAL HISTORY: PAST SURGICAL HISTORY: Social History: Smoking: Alcohol: Drugs: Allergies No Known Allergies Allergy (Verified 11/10/19 22:55) HOME MEDICATIONS: Home Medications Medication Instructions Recorded Aspirin [ASA -] 81 mg PO DAILY 03/17/17 Atorvastatin Ca [Lipitor] 80 mg PO HS 03/17/17 REVIEW OF SYSTEMS CONSTITUTIONAL: Absent: fever, chills, diaphoresis, generalized weakness, malaise, loss of appetite, weight change HEENT: Absent: rhinorrhea, nasal congestion, throat pain, throat swelling, difficulty swallowing, mouth swelling, ear pain, eye pain, visual changes CARDIOVASCULAR: Absent: chest pain, syncope, palpitations, irregular heart rate, lightheadedness , peripheral edema RESPIRATORY: Absent: cough, shortness of breath, dyspnea with exertion, orthopnea, wheezing, stridor, hemoptysis GASTROINTESTINAL: Absent: abdominal pain, abdominal distension, nausea, vomiting, diarrhea, constipation, melena, hematochezia GENITOURINARY: Absent: dysuria, frequency, urgency, hesitancy, hematuria, flank pain, genital pain MUSCULOSKELETAL: Absent: myalgia, arthralgia, joint swelling, back pain, neck pain SKIN: Absent: rash, itching, pallor HEMATOLOGIC/IMMUNOLOGIC: Absent: easy bleeding, easy bruising, lymphadenopathy, frequent infections ENDOCRINE: Absent: unexplained weight gain, unexplained weight loss, heat intolerance, cold intolerance NEUROLOGIC: Absent: headache, focal weakness or paresthesias, dizziness, unsteady gait, seizure, mental status changes, bladder or bowel incontinence PSYCHIATRIC: Absent: anxiety, depression, suicidal or homicidal ideation, hallucinations. PHYSICAL EXAMINATION Vital Signs - 24 hr 11/10/19 11/11/19 22:53 05:04 Temperature 97.5 F L 98.1 F Pulse Rate 53 L Pulse Rate [ 64 Apical] Respiratory 16 19 Rate Blood Pressure 131/61 Blood Pressure 124/69 [Left Arm] O2 Sat by Pulse 96 98 Oximetry (%) GENERAL: Awake, alert, and fully oriented, in no acute distress. HEAD: Normal with no signs of trauma. EYES: Pupils equal, round and reactive to light, extraocular movements intact, sclera anicteric, conjunctiva clear. No lid lag. EARS, NOSE, THROAT: Ears normal, nares patent, oropharynx clear without exudates. Moist mucous membranes. NECK: Normal range of motion, supple without lymphadenopathy, JVD, or masses. LUNGS: Breath sounds equal, clear to auscultation bilaterally. No wheezes, and no crackles. No accessory muscle use. HEART: Regular rate and rhythm, normal S1 and S2 without murmur, rub or gallop. ABDOMEN: Soft, nontender, not distended, normoactive bowel sounds, no guarding, no rebound, no masses. No hepatomegaly or splenomegaly. MUSCULOSKELETAL: Normal range of motion at all joints. No bony deformities or tenderness. No CVA tenderness. UPPER EXTREMITIES: 2+ pulses, warm, well-perfused. No cyanosis. No clubbing. No peripheral edema. LOWER EXTREMITIES: 2+ pulses, warm, well-perfused. No calf tenderness. No peripheral edema. NEUROLOGICAL: Cranial nerves II-XII intact. Normal speech. Normal gait. PSYCHIATRIC: Cooperative. Good eye contact. Appropriate mood and affect. SKIN: Warm, dry, normal turgor, no rashes or lesions noted, normal capillary refill. Laboratory Results - last 24 hr 11/10/19 11/10/19 11/10/19 23:13 23:13 23:13 WBC 8.6 RBC 5.61 H Hgb 15.7 Hct 47.1 MCV 84.0 MCH 28.0 MCHC 33.3 RDW 14.6 Plt Count 248 MPV 7.6 Absolute Neuts (auto) 4.3 Neutrophils % 49.8 Lymphocytes % 37.2 D Monocytes % 9.0 Eosinophils % 2.6 Basophils % 1.4 Nucleated RBC % 0 PT with INR INR PTT (Actin FS) Sodium 141 Potassium 3.9 Chloride 109 H Carbon Dioxide 25 Anion Gap 7 L BUN 22.3 H Creatinine 1.2 Est GFR (CKD-EPI)AfAm 66.73 Est GFR (CKD-EPI)NonAf 57.57 POC Glucometer Random Glucose 69 L Calcium 9.2 Magnesium 1.9 Total Bilirubin 0.5 AST 24 ALT 50 Alkaline Phosphatase 69 B-Natriuretic Peptide 148.5 Total Protein 7.0 Albumin 3.7 TSH 43.40 H D Free T4 0.72 L Urine Color Urine Appearance Urine pH Ur Specific [place] Urine Protein Urine Glucose (UA) Urine Ketones Urine Blood Urine Nitrite Urine Bilirubin Urine Urobilinogen Ur Leukocyte Esterase Urine WBC (Auto) Urine RBC (Auto) Urine Casts (Auto) U Epithel Cells (Auto) Urine Bacteria (Auto) 11/10/19 11/10/19 11/11/19 23:13 23:29 01:36 WBC RBC Hgb Hct MCV MCH MCHC RDW Plt Count MPV Absolute Neuts (auto) Neutrophils % Lymphocytes % Monocytes % Eosinophils % Basophils % Nucleated RBC % PT with INR 11.90 INR 1.01 PTT (Actin FS) 36.3 Sodium Potassium Chloride Carbon Dioxide Anion Gap BUN Creatinine Est GFR (CKD-EPI)AfAm Est GFR (CKD-EPI)NonAf POC Glucometer 71 Random Glucose Calcium Magnesium Total Bilirubin AST ALT Alkaline Phosphatase B-Natriuretic Peptide Total Protein Albumin TSH Free T4 Urine Color Yellow Urine Appearance Clear Urine pH 5.0 Ur Specific [place] 1.023 Urine Protein Negative Urine Glucose (UA) 1+ H Urine Ketones Negative Urine Blood 1+ H Urine Nitrite Negative Urine Bilirubin Negative Urine Urobilinogen 0.2 Ur Leukocyte Esterase Negative Urine WBC (Auto) 1 Urine RBC (Auto) 2 Urine Casts (Auto) 4 U Epithel Cells (Auto) 0.6 Urine Bacteria (Auto) 1.7 ASSESSMENT/PLAN: Visit type - Emergency Visit Emergency Visit: Yes ED Registration Date: 11/11/19 Care time: The patient presented to the Emergency Department on the above date and was hospitalized for further evaluation of their emergent condition. - New Patient This patient is new to me today: Yes Date on this admission: 11/11/19 - Critical Care Critical Care patient: No ATTENDING PHYSICIAN STATEMENT I saw and evaluated the patient. I reviewed the resident's note and discussed the case with the resident. I agree with the resident's findings and plan as documented.
[2019-11-11] MEDS ORDERED: ASPIRIN 325 MG TABLET PO STA (04:44)
[2019-11-11] MEDS ORDERED: ASPIRIN 325 MG ENTERIC COATED TABLET (FP) ONE (04:48)
[2019-11-11] MEDS: HEPARIN NA (PORCINE) 5,000 UNITS/ML 1ML VIAL SQ SCH ×3 (05:01→21:30)
--- NOTE | 2019-11-11 05:58 | PN.NIHSS ---
NIH Stroke Scale - Initial Evaluation Level of consciousness: Alert Ask patient the month and their age: Answers one correctly Ask patient to open & close eyes; make fist and let go: Obeys both correctly Best gaze (horizontal eye movement): Normal Visual field testing: No visual field loss Facial paresis (Show teeth/raise eyebrows/close eyes tight): Normal symmetrical movement Motor Function: Left Arm: Drift Motor Function: Right Arm: Normal (extends arm 90 (or 45) degrees for 10 seconds without drift Motor Function: Left Leg: Drift Motor Function: Right Leg: Normal (extends leg 30 degrees for 5 seconds without drift) Limb Ataxia: No ataxia Sensory(Use pinprick test arms,legs,trunk,face/side to side): Normal Best language (Describe picture, name items, read sentences): No Aphasia Dysarthria (read several words): Normal articulation
[2019-11-11 07:54] LABS: BASO % 0.8 % (0-2.0); HEMATOCRIT 44.6 % (35.4-49); HEMOGLOBIN 14.8 GM/dL (11.7-16.9); LYMPH % 29.5 % (8-40); MCH 27.7 pg (25.7-33.7); MCHC 33.2 g/dl (32.0-35.9); MEAN CELL VOLUME 83.4 fl (80-96); MEAN PLT VOLUME 7.7 fl (7.5-11.1); MONO % 7.4 % (3.8-10.2); NEUT % 59.3 % (42.8-82.8); PLATELET COUNT 208 K/MM3 (134-434); RBC 5.34 M/mm3 (4.00-5.60); RDW 14.3 % (11.9-15.9); WHITE BLOOD COUNT 5.5 K/mm3 (4.0-10.0)
[2019-11-11 08:29] LABS: ALBUMIN 3.4 g/dl (3.4-5.0); BILIRUBIN,TOTAL 0.6 mg/dL (0.2-1); BLOOD UREA NITROGEN 19.8 mg/dL (7-18); CALCIUM 8.5 mg/dL (8.5-10.1); CREATININE 1.2 mg/dL (0.55-1.3); TOT PROT 6.4 g/dl (6.4-8.2)
--- NOTE | 2019-11-11 09:02 | CONSULT ---
Consult - text type - Consultation Consultation Note: Neurology CHIEF COMPLAINT: LUE weakness PCP: [facility] HISTORY OF PRESENT ILLNESS: 79 y.o. M PMH CVA w/ LLE residual deficits presented for new onset LUE weakness as well as increased LLE weakness. Patient is solely mexican speaking, son present at bedside for translation. The patient does not regularly follow up with doctors and as per son was putting off these symptoms as he did not want to come to the hospital, but finally was convinced by his son to come to the ED. As per son he has also been a bit forgetful over the past few weeks. On ROS , denies any pain/ headaches/ SOB/ palpitations/ cough/ nausea/ vomiting/ dizziness/ sensory deficits/ myalgias/ urinary or bowel changes/ weight changes. Head CT performed and showed nonhemorrhagic hypodensities in right frontoparietal irwin radiata/centrum semiovale concerning for recent internal border zone infarct. Chronic right thalamic lacunar infarct. No evidence of acute hemorrhage. Spoke with son in detail and informed him of the results and explained how these can be etiology for his deficits. The son indicated the patient was taking aspirin at home, likely 81 mg. He will confirm the dose and I informed him that we will nneed to increase his antiplatelet regimen and for now will have him on aspirin 325 mg daily. He completed carotid Dopplers this morning, report pending. MRI brain to be completed, MRA was ordered, will adjust to MRI brain. Lipid profile pending, patient on max dose statin for now. Recent Travel: Denies PAST MEDICAL HISTORY: As per hpi PAST SURGICAL HISTORY: Denies Family History: HTN Social History: Smoking: denies Alcohol:denies Drugs: denies REVIEW OF SYSTEMS CONSTITUTIONAL: Absent: fever, chills, diaphoresis, generalized weakness, malaise, loss of appetite, weight change HEENT: Absent: rhinorrhea, nasal congestion, throat pain, throat swelling, difficulty swallowing, mouth swelling, ear pain, eye pain, visual changes CARDIOVASCULAR: Absent: chest pain, syncope, palpitations, irregular heart rate, lightheadedness , peripheral edema RESPIRATORY: Absent: cough, shortness of breath, dyspnea with exertion, orthopnea, wheezing, stridor, hemoptysis GASTROINTESTINAL: Absent: abdominal pain, abdominal distension, nausea, vomiting, diarrhea, constipation, melena, hematochezia GENITOURINARY: Absent: dysuria, frequency, urgency, hesitancy, hematuria, flank pain, genital pain MUSCULOSKELETAL: Absent: myalgia, arthralgia, joint swelling, back pain, neck pain SKIN: Absent: rash, itching, pallor HEMATOLOGIC/IMMUNOLOGIC: Absent: easy bleeding, easy bruising, lymphadenopathy, frequent infections ENDOCRINE: Absent: unexplained weight gain, unexplained weight loss, heat intolerance, cold intolerance NEUROLOGIC: Absent: headache, focal weakness or paresthesias, dizziness, unsteady gait, seizure, mental status changes, bladder or bowel incontinence PSYCHIATRIC: Absent: anxiety, depression, suicidal or homicidal ideation, hallucinations. Allergies No Known Allergies Allergy (Verified 11/10/19 22:55) HOME MEDICATIONS: Home Medications Medication Instructions Recorded Aspirin [ASA -] 81 mg PO DAILY 03/17/17 Atorvastatin Ca [Lipitor] 80 mg PO HS 03/17/17 Active Medications Aspirin (Asa -) 325 mg PO DAILY [facility] Atorvastatin Calcium (Lipitor -) 80 mg PO HS [facility] Heparin Sodium (Porcine) (Heparin -) 5,000 unit SQ TID [facility] Last Admin: 11/11/19 05:01 Dose: 5,000 unit PHYSICAL EXAMINATION Vital Signs Period Temp Pulse Resp BP Sys/Tabares Pulse Ox Last 24 Hr 97.5 F-98.1 F 53-64 16-19 124-131/61-69 96-98 GENERAL: Awake, alert, and fully oriented, in no acute distress. HEENT: NCAT. Scler anicteric. MMM. EOMI. PERRLA. LUNGS: Breath sounds equal, clear to auscultation bilaterally. No wheezes, and no crackles. No accessory muscle use. HEART: Regular rate and rhythm, normal S1 and S2 without murmur, rub or gallop. ABDOMEN: Soft, nontender, not distended, normoactive bowel sounds EXTREMITIES: 2+ pulses, warm, well-perfused. No peripheral edema. NEUROLOGICAL: Cranial nerves II-XII intact. Normal speech. Normal gait. LUE & LLE motor drift, 4/5 strength & handgrip. R extremities 5/ motor. Sensory intact throughout. PSYCHIATRIC: Cooperative. Good eye contact. Appropriate mood and affect. SKIN: Warm, dry, normal turgor, no rashes or lesions noted, normal capillary refill. CBCD WBC 5.5 K/mm3 (4.0-10.0) 11/11/19 06:50 RBC 5.34 M/mm3 (4.00-5.60) 11/11/19 06:50 Hgb 14.8 GM/dL (11.7-16.9) 11/11/19 06:50 Hct 44.6 % (35.4-49) 11/11/19 06:50 MCV 83.4 fl (80-96) 11/11/19 06:50 MCHC 33.2 g/dl (32.0-35.9) 11/11/19 06:50 RDW 14.3 % (11.9-15.9) 11/11/19 06:50 Plt Count 208 K/MM3 (134-434) 11/11/19 06:50 MPV 7.7 fl (7.5-11.1) 11/11/19 06:50 CMP Sodium 138 mmol/L (136-145) 11/11/19 06:50 Potassium 4.0 mmol/L (3.5-5.1) 11/11/19 06:50 Chloride 109 mmol/L (98-107) H 11/11/19 06:50 Carbon Dioxide 20 mmol/L (21-32) L 11/11/19 06:50 Anion Gap 10 MMOL/L (8-16) 11/11/19 06:50 BUN 19.8 mg/dL (7-18) H 11/11/19 06:50 Creatinine 1.2 mg/dL (0.55-1.3) 11/11/19 06:50 Random Glucose 90 mg/dL (74-106) 11/11/19 06:50 Calcium 8.5 mg/dL (8.5-10.1) 11/11/19 06:50 Total Bilirubin 0.6 mg/dL (0.2-1) 11/11/19 06:50 AST 21 U/L (15-37) 11/11/19 06:50 ALT 45 U/L (13-61) 11/11/19 06:50 Alkaline Phosphatase 61 U/L (45-117) 11/11/19 06:50 Total Protein 6.4 g/dl (6.4-8.2) 11/11/19 06:50 Albumin 3.4 g/dl (3.4-5.0) 11/11/19 06:50 ASSESSMENT/PLAN: 79 y.o. M PMH CVA w/ LLE residual deficits presented for new onset LUE weakness as well as increased LLE weakness. Patient is solely mexican speaking, son present at bedside for translation. The patient does not regularly follow up with doctors and as per son was putting off these symptoms as he did not want to come to the hospital, but finally was convinced by his son to come to the ED. As per son he has also been a bit forgetful over the past few weeks. On ROS , denies any pain/ headaches/ SOB/ palpitations/ cough/ nausea/ vomiting/ dizziness/ sensory deficits/ myalgias/ urinary or bowel changes/ weight changes. Head CT performed and showed nonhemorrhagic hypodensities in right frontoparietal irwin radiata/centrum semiovale concerning for recent internal border zone infarct. Chronic right thalamic lacunar infarct. No evidence of acute hemorrhage. Spoke with son in detail and informed him of the results and explained how these can be etiology for his deficits. The son indicated the patient was taking aspirin at home, likely 81 mg. He will confirm the dose and I informed him that we will nneed to increase his antiplatelet regimen and for now will have him on aspirin 325 mg daily. He completed carotid Dopplers this morning, report pending. MRI brain to be completed, MRA was ordered, will adjust to MRI brain. Lipid profile pending, patient on max dose statin for now. physical therapy recommended,, may require short-term rehabilitation. Monitor blood pressure, maintain normotensive < 160/90 for now. DVT prophylaxis.
--- NOTE | 2019-11-11 09:56 | PN ---
Physical Exam: SUBJECTIVE: Patient seen and examined OBJECTIVE: Vital Signs Period Temp Pulse Resp BP Sys/Tabares Pulse Ox Last 24 Hr 97.5 F-98.1 F 53-64 16-19 124-131/61-69 96-98 GENERAL: The patient is awake, alert, and fully oriented, in no acute distress. LUNGS: Breath sounds equal, clear to auscultation bilaterally, no wheezes, no crackles, no accessory muscle use. HEART: Regular rate and rhythm, S1, S2 without murmur, rub or gallop. ABDOMEN: Obese, soft, nontender, nondistended, normoactive bowel sounds, no guarding, no rebound, no hepatosplenomegaly, no masses. EXTREMITIES: 2+ pulses, warm, well-perfused, no edema. NEUROLOGICAL: Cranial nerves II through XII grossly intact. Normal speech. Strength 4+/5 in LUE/LLE, 5/5 in RUE/RLE. Gait not observed. Laboratory Results - last 24 hr 11/10/19 11/10/19 11/10/19 23:13 23:13 23:13 WBC 8.6 RBC 5.61 H Hgb 15.7 Hct 47.1 MCV 84.0 MCH 28.0 MCHC 33.3 RDW 14.6 Plt Count 248 MPV 7.6 Absolute Neuts (auto) 4.3 Neutrophils % 49.8 Lymphocytes % 37.2 D Monocytes % 9.0 Eosinophils % 2.6 Basophils % 1.4 Nucleated RBC % 0 PT with INR INR PTT (Actin FS) Sodium 141 Potassium 3.9 Chloride 109 H Carbon Dioxide 25 Anion Gap 7 L BUN 22.3 H Creatinine 1.2 Est GFR (CKD-EPI)AfAm 66.73 Est GFR (CKD-EPI)NonAf 57.57 POC Glucometer Random Glucose 69 L Hemoglobin A1c % Calcium 9.2 Magnesium 1.9 Total Bilirubin 0.5 AST 24 ALT 50 Alkaline Phosphatase 69 B-Natriuretic Peptide 148.5 Total Protein 7.0 Albumin 3.7 Triglycerides Cholesterol Total LDL Cholesterol HDL Cholesterol TSH 43.40 H D Free T4 0.72 L Urine Color Urine Appearance Urine pH Ur Specific [place] Urine Protein Urine Glucose (UA) Urine Ketones Urine Blood Urine Nitrite Urine Bilirubin Urine Urobilinogen Ur Leukocyte Esterase Urine WBC (Auto) Urine RBC (Auto) Urine Casts (Auto) U Epithel Cells (Auto) Urine Bacteria (Auto) 11/10/19 11/10/19 11/11/19 23:13 23:29 01:36 WBC RBC Hgb Hct MCV MCH MCHC RDW Plt Count MPV Absolute Neuts (auto) Neutrophils % Lymphocytes % Monocytes % Eosinophils % Basophils % Nucleated RBC % PT with INR 11.90 INR 1.01 PTT (Actin FS) 36.3 Sodium Potassium Chloride Carbon Dioxide Anion Gap BUN Creatinine Est GFR (CKD-EPI)AfAm Est GFR (CKD-EPI)NonAf POC Glucometer 71 Random Glucose Hemoglobin A1c % Calcium Magnesium Total Bilirubin AST ALT Alkaline Phosphatase B-Natriuretic Peptide Total Protein Albumin Triglycerides Cholesterol Total LDL Cholesterol HDL Cholesterol TSH Free T4 Urine Color Yellow Urine Appearance Clear Urine pH 5.0 Ur Specific [place] 1.023 Urine Protein Negative Urine Glucose (UA) 1+ H Urine Ketones Negative Urine Blood 1+ H Urine Nitrite Negative Urine Bilirubin Negative Urine Urobilinogen 0.2 Ur Leukocyte Esterase Negative Urine WBC (Auto) 1 Urine RBC (Auto) 2 Urine Casts (Auto) 4 U Epithel Cells (Auto) 0.6 Urine Bacteria (Auto) 1.7 11/11/19 11/11/19 11/11/19 06:50 06:50 09:21 WBC 5.5 RBC 5.34 Hgb 14.8 Hct 44.6 MCV 83.4 MCH 27.7 MCHC 33.2 RDW 14.3 Plt Count 208 MPV 7.7 Absolute Neuts (auto) 3.3 Neutrophils % 59.3 Lymphocytes % 29.5 D Monocytes % 7.4 Eosinophils % 3.0 Basophils % 0.8 Nucleated RBC % 0 PT with INR INR PTT (Actin FS) Sodium 138 Potassium 4.0 Chloride 109 H Carbon Dioxide 20 L Anion Gap 10 BUN 19.8 H Creatinine 1.2 Est GFR (CKD-EPI)AfAm 66.73 Est GFR (CKD-EPI)NonAf 57.57 POC Glucometer Random Glucose 90 Hemoglobin A1c % 5.9 Calcium 8.5 Magnesium Total Bilirubin 0.6 AST 21 ALT 45 Alkaline Phosphatase 61 B-Natriuretic Peptide Total Protein 6.4 Albumin 3.4 Triglycerides Cancelled Cholesterol Cancelled Total LDL Cholesterol Cancelled HDL Cholesterol Cancelled TSH Free T4 Urine Color Urine Appearance Urine pH Ur Specific [place] Urine Protein Urine Glucose (UA) Urine Ketones Urine Blood Urine Nitrite Urine Bilirubin Urine Urobilinogen Ur Leukocyte Esterase Urine WBC (Auto) Urine RBC (Auto) Urine Casts (Auto) U Epithel Cells (Auto) Urine Bacteria (Auto) Active Medications Generic Name Dose Route Start Last Admin Trade Name Freq PRN Reason Stop Dose Admin Aspirin 325 mg 11/12/19 10:00 Asa - PO DAILY [facility] Atorvastatin Calcium 80 mg 11/11/19 22:00 Lipitor - PO HS [facility] Heparin Sodium (Porcine) 5,000 unit 11/11/19 06:00 11/11/19 05:01 Heparin - SQ 5,000 unit TID [facility] Administration ASSESSMENT/PLAN: This is a 79 year old man with a history of CVA who presented to the ED with left sided weakness. 1. Possible acute CVA - Head CT shows non-hemorrhagic hypodensities in right frontoparietal irwin radiata/centrum semiovale, chronic right thalamic lacunar infarct - Carotid dopplers, MRI of brain pending - Continue aspirin, Lipitor 2. Hypothyroidism - TSH 43.4, FT4 0.72 - Start Synthroid Visit type - Emergency Visit Emergency Visit: Yes ED Registration Date: 11/11/19 Care time: The patient presented to the Emergency Department on the above date and was hospitalized for further evaluation of their emergent condition. - New Patient This patient is new to me today: Yes Date on this admission: 11/11/19 - Critical Care Critical Care patient: No - Discharge Referral Referred to [facility] Med P.C[facility] No
--- NOTE | 2019-11-11 15:16 | EKG ---
Test Reason : Blood Pressure : / mmHG Vent. Rate : 051 BPM Atrial Rate : 051 BPM P-R Int : 194 ms QRS Dur : 100 ms QT Int : 460 ms P-R-T Axes : 034 -09 010 degrees QTc Int : 423 ms SINUS BRADYCARDIA MINIMAL VOLTAGE CRITERIA FOR LVH, MAY BE NORMAL VARIANT SEPTAL INFARCT (CITED ON OR BEFORE 25-OCT-2019) ABNORMAL ECG WHEN COMPARED WITH ECG OF 25-OCT-2019 13:03, NO SIGNIFICANT CHANGE WAS FOUND Confirmed by SCOTT CHEUNG MD ([id number]) on 11/11/2019 3:15:45 PM Referred By: Confirmed By:SCOTT CHEUNG MD
--- NOTE | 2019-11-11 15:28 | ECHO ---
Name: NIKO, EMMANUEL Exam:Adult Echocardiogram Study Date: 11/11/2019 02:10 PM Age: 79 yrs Reason For Study: CVA Height: 69 in Weight: 250 lb BSA: 2.3 m2 MMode/2D Measurements & Calculations IVSd: 1.1 cm Ao root diam: 3.2 cm LVIDd: 4.7 cm LA dimension: 3.5 cm LVIDs: 3.2 cm ACS: 1.7 cm LVPWd: 1.1 cm EDV(Teich): 100.1 ml LVOT diam: 2.5 cm ESV(Teich): 39.9 ml LAV (MOD-bp): 66.0 ml TAPSE: 2.1 cm RV S Corby: 12.5 cm/sec Doppler Measurements & Calculations MV E max corby: 63.2 cm/sec Ao V2 max: 133.0 cm/sec MV A max corby: 83.4 cm/sec Ao max P.1 mmHg MV E/A: 0.76 Ao V2 mean: 92.7 cm/sec MV dec time: 0.38 sec Ao mean P.9 mmHg Ao V2 VTI: 26.8 cm LYNDSEY(I,D): 4.5 cm2 LYNDSEY(V,D): 3.8 cm2 LV V1 max P.4 mmHg SV(LVOT): 120.4 ml LV V1 mean P.0 mmHg LV V1 max: 105.1 cm/sec LV V1 mean: 64.1 cm/sec LV V1 VTI: 25.0 cm TR max corby: 218.5 cm/sec PA V2 max: 103.2 cm/sec TR max P.2 mmHg PA max P.3 mmHg PI end-d corby: 93.7 cm/sec Med Peak E' Corby: 5.8 cm/sec Med E/e': 10.8 Lat Peak E' Corby: 7.5 cm/sec Lat E/e': 8.4 Tech Comments TDS and no Surinamese. Procedure A complete two-dimensional transthoracic echocardiogram was performed (2D, M-mode, Doppler and color flow Doppler). Left Ventricle The left ventricular size, thickness and function are normal. The left ventricular ejection fraction is normal. Ejection Fraction = 60-65%. The left ventricular wall motion is normal. Right Ventricle The right ventricle is normal in size and function. Atria Normal left and right atrial size and function. Mitral Valve There is no mitral regurgitation noted. Tricuspid Valve There is trace tricuspid regurgitation. Aortic Valve No hemodynamically significant valvular aortic stenosis. No aortic regurgitation is present. Pulmonic Valve There is no pulmonic valvular regurgitation. Great Vessels The aortic root is normal size. Pericardium/Pleura There is no pericardial effusion. Interpretation Summary The left ventricular size, thickness and function are normal The right ventricle is normal in size and function. There is trace tricuspid regurgitation. MD Porfirio Rodriguez 11/11/2019 03:28 PM
--- NOTE | 2019-11-11 18:42 | CONSULT ---
Admitting History and Physical - Smoking History Smoking history: Never smoked Have you smoked in the past 12 months: No - Alcohol/Substance Use Hx Alcohol Use: No History - Admission Reason For Visit: TRANSIENT ISCHEMIC ATTACK Speech Evaluation - Communication Primary Language: BAHAMIAN Communication: Yes: Simple Responses, Language Barrier Oral Expression Ability: Yes: Mild Impairment - Speech Production Apraxia: No Able to Make Needs Known: Yes: Mildly Impaired Intelligibility: Yes: Mildly Impaired - Speech Characteristics Voice Loudness: Normal Voice Pitch: Yes: Normal Voice Phonatory-based Quality: Yes: Normal Speech Pattern: Normal Nasal Resonance: Normal Articulation: Yes: Precise Voice Comment: Vocal quality is functional for the environment with speech parameters WNL. - Language/Auditory Comprehension Follows: Yes: 1 Stage Simple Commands (in [place] language) Observation: Able to respond to yes/no queries: Yes, Yes/No Confusion: No, Comprehends Conversational Speech: Yes (in Mongolian ), Benefits from Slow Speech : No, Benefits from Repetiton: No, Benefits from Increased Volume of Speech: No - Language/Verbal Expression Able to Respond to Simple Queries: Yes: Mildly Impaired Able to Communicate Wants and Needs: Yes: WNL Functional Communication Status: Yes: WNL Aware of Errors: Yes Attempts to Correct Errors: Yes Use of Gestures: Yes Attention: Yes: Intact - Memory/Perception shelter Memory: Yes: Mildly Impaired Short Term Memory: Yes: WNL - Swallow Evaluation/Bedside Assessment Current Nutritional Intake: Regular, Thin Liquids Oral Secretions: Yes: WFL Tracheostomy Present: No Patient on Ventilator: No Dentition: Yes: Edentulous, Missing Teeth Facial Symmetry at Rest: Facial Droop Left (mild) Facial Symmetry on Retraction: Facial Droop Left (mild) Facial Movement: Controlled Sensation: Normal Facial Comment: WFL for speech and swallowing purposes Jaw Position: Closed at Rest Against Resistance Opening: Normal Against Resistance Closing: Normal Pucker Lips: Droops Left Smile: Droops Left Lips, Comment: WFL for speech and swallowing purposes Lingual Movement: Normal Lingual Speed of Movement: Normal Lingual Movement Strgth Against Opposition: Normal Lingual Movement Characteristics: Normal Lingual Comment: WFL for speech and swallowing purposes Soft Palate Description: Normal Color Hard Palate Description: Normal Color Gag Reflex: Strong Bite Reflex: Present Velopharyngeal Movement: Normal Laryngeal Elevation: WFL Laryngeal Movement: Able to Palpate Needs Assistance: Yes Rate of Intake: WFL Bolus Size: WFL Labial Seal: WFL Chewing: WFL Oral Prep Time: WFL A-P Transit: WFL Pocketing: None Timing of Swallow: WFL Coughing/Throat Clear: No Change in Voice: No Other Findings/Remarks: 79 y.o. M PMH CVA w/ LLE residual deficits presented for new onset LUE weakness as well as increased LLE weakness. Patient is solely maltese speaking, son present at bedside for translation. Vocal quality is functional for the environment with speech parameters WNL. Volitional airway protection (without bolus) and swallow is WNL. Hypothyroid elevation was present/strong to palpation of the anterior neck. BEEF TRIMMER unable to formally evaluate oral / facial structure secondary to language barrier. Informal assessment of the oral / facial features appears within functional limits for speech and swallowing purposes. Pt given PO trials of pureed, mechanical soft solids, regular cut to bite sized pieces with some assistance revealed, adequate bolus formation and A P transport with a timely pharyngeal swallow (1-2 second average). No change in voicing or respiration after the swallow. Pt given PO trials of ice chips via spoon, thin liquids via cup and straw with some assistance revealed good acceptance, adequate labial containment / bolus control and, A P transport with a timely pharyngeal swallow (1-2 second average). No change in voicing or respiration after the swallow. Recommendations - Speech Evaluation, Impression/Plan Impression: The oral and pharyngeal swallow is adequate for po intake of pureed , regular solids and thin liquids. Labial containment, mastication, bolus transport, and initiation of swallow were WNL. No coughing or changes in voicing to suggest penetration / aspiration at bedside at this time. Cyber Incident Handler Goals: Tolerate the least restrictive solid and liquid consistencies without s/s of penetration / aspiration. Short Term Goals: Tolerate regular solids and thin liquid consistencies without s/s of penetration / aspiration. Recommended Frequency for Therapy: Follow Up PRN - Dysphagia Impressions/Plan Swallowing Skills: Impaired Dysphagia Impressions: Minimal Impairment, Risk of Aspiration *Silent aspiration: cannot be R/O at bedside Dysphagia Treatment Plan: Safe Rate, 1/2 tsp. at a time, Elevate HOB during feed , Other (alternate liquids for every 2-3 bites of solids.) Dysphagia Evaluation Summary: Continue po intake of regular solids and thin liquids at tolerated. Observe standard aspiration precautions. Verbal prompts and / or reminders to completed compensatory strategy liquids for every 2-3 bites of solids. Provide oral care before and after meal meals. Results given verbally to cupola charger and PCP via chart. BEEF TRIMMER to follow up for diet tolerance. - Recommendations Diet Consistency: Regular, Dietary Restrictions/MD (sodium controlled) Medication Administration: Whole with water Liquids: Thin Liquids
[2019-11-11] MEDS ORDERED: ATORVASTATIN CA 80 MG TABLET (FP) ONE (21:28)
[2019-11-11] MEDS: ATORVASTATIN CA 80 MG TABLET (FP) PO SCH (21:30)
[2019-11-12 04:08] VITALS: BMI 32.2
[2019-11-12] MEDS: HEPARIN NA (PORCINE) 5,000 UNITS/ML 1ML VIAL SQ SCH ×3 (06:15→21:26)
[2019-11-12] MEDS ORDERED: LEVOTHYROXINE NA 25 MCG TABLET (FP) PO SCH (07:00)
--- NOTE | 2019-11-12 08:33 | PN ---
Progress Note (short form) - Note Progress Note: Neurology CHIEF COMPLAINT: LUE weakness PCP: nadeen grijalva HISTORY OF PRESENT ILLNESS: 79 y.o. M PMH CVA w/ LLE residual deficits presented for new onset LUE weakness as well as increased LLE weakness. Patient is solely faroese speaking, son present at bedside for translation. The patient does not regularly follow up with doctors and as per son was putting off these symptoms as he did not want to come to the hospital, but finally was convinced by his son to come to the ED. As per son he has also been a bit forgetful over the past few weeks. On ROS , denies any pain/ headaches/ SOB/ palpitations/ cough/ nausea/ vomiting/ dizziness/ sensory deficits/ myalgias/ urinary or bowel changes/ weight changes. Head CT performed and showed nonhemorrhagic hypodensities in right frontoparietal irwin radiata/centrum semiovale concerning for recent internal border zone infarct. Chronic right thalamic lacunar infarct. No evidence of acute hemorrhage. Spoke with son in detail and informed him of the results and explained how these can be etiology for his deficits. The son indicated the patient was taking aspirin at home, 81 mg. He will confirm the dose and I informed him that we will need to increase his antiplatelet regimen and for now will have him on aspirin 325 mg daily. He completed carotid Dopplers and showed large plaques at right bulb and proximal ICA with no flow detected C/W near occlusion/occluded vessel, Moderate-large plaques at left CCA bifurcation with at least 50-69% stenosis. MRI brain completed and showed acute right infarct between right MCA, BREADING MACHINE TENDER vascular territories. Scattered acute right frontal lobe infarcts. Several acute infarcts in superior aspect of left frontal and parietal lobe. 2 acute microinfarcts in left centrum semiovale. Lipid profile reviewedand LDL 161, patientstarted on statin 80 mg. Echo also reviewed with normal left ventricular function and thickness. Confirmed the patient was taking 81 mg aspirin at home and therefore should now be on 325 mg daily. Discussed with them importance of optimization of hyperlipidemia and statin. Active Medications Aspirin (Asa -) 325 mg PO DAILY [facility] Atorvastatin Calcium (Lipitor -) 80 mg PO HS [facility] Last Admin: 11/11/19 21:30 Dose: 80 mg Heparin Sodium (Porcine) (Heparin -) 5,000 unit SQ TID [facility] Last Admin: 11/12/19 06:15 Dose: 5,000 unit Levothyroxine Sodium (Synthroid -) 25 mcg PO DAILY@0700 [facility] Last Admin: 11/12/19 06:15 Dose: 25 mcg PHYSICAL EXAMINATION Vital Signs Period Temp Pulse Resp BP Sys/Tabares Pulse Ox Last 24 Hr 97.4 F-98.2 F 55-64 18-20 125-148/70-85 95-98 GENERAL: Awake, alert, and fully oriented, in no acute distress. HEENT: NCAT. Scler anicteric. MMM. EOMI. PERRLA. LUNGS: Breath sounds equal, clear to auscultation bilaterally. No wheezes, and no crackles. No accessory muscle use. HEART: Regular rate and rhythm, normal S1 and S2 without murmur, rub or gallop. ABDOMEN: Soft, nontender, not distended, normoactive bowel sounds EXTREMITIES: 2+ pulses, warm, well-perfused. No peripheral edema. NEUROLOGICAL: Cranial nerves II-XII intact. Normal speech. Normal gait. LUE & LLE motor drift, 4+/5 strength & handgrip. R extremities 5/ motor. Sensory intact throughout. PSYCHIATRIC: Cooperative. Good eye contact. Appropriate mood and affect. SKIN: Warm, dry, normal turgor, no rashes or lesions noted, normal capillary refill. CBCD WBC 5.5 K/mm3 (4.0-10.0) 11/11/19 06:50 RBC 5.34 M/mm3 (4.00-5.60) 11/11/19 06:50 Hgb 14.8 GM/dL (11.7-16.9) 11/11/19 06:50 Hct 44.6 % (35.4-49) 11/11/19 06:50 MCV 83.4 fl (80-96) 11/11/19 06:50 MCHC 33.2 g/dl (32.0-35.9) 11/11/19 06:50 RDW 14.3 % (11.9-15.9) 11/11/19 06:50 Plt Count 208 K/MM3 (134-434) 11/11/19 06:50 MPV 7.7 fl (7.5-11.1) 11/11/19 06:50 CMP Sodium 138 mmol/L (136-145) 11/11/19 06:50 Potassium 4.0 mmol/L (3.5-5.1) 11/11/19 06:50 Chloride 109 mmol/L (98-107) H 11/11/19 06:50 Carbon Dioxide 20 mmol/L (21-32) L 11/11/19 06:50 Anion Gap 10 MMOL/L (8-16) 11/11/19 06:50 BUN 19.8 mg/dL (7-18) H 11/11/19 06:50 Creatinine 1.2 mg/dL (0.55-1.3) 11/11/19 06:50 Random Glucose 90 mg/dL (74-106) 11/11/19 06:50 Calcium 8.5 mg/dL (8.5-10.1) 11/11/19 06:50 Total Bilirubin 0.6 mg/dL (0.2-1) 11/11/19 06:50 AST 21 U/L (15-37) 11/11/19 06:50 ALT 45 U/L (13-61) 11/11/19 06:50 Alkaline Phosphatase 61 U/L (45-117) 11/11/19 06:50 Total Protein 6.4 g/dl (6.4-8.2) 11/11/19 06:50 Albumin 3.4 g/dl (3.4-5.0) 11/11/19 06:50 ASSESSMENT/PLAN: 79 y.o. M PMH CVA w/ LLE residual deficits presented for new onset LUE weakness as well as increased LLE weakness. Patient is solely faroese speaking, son present at bedside for translation. The patient does not regularly follow up with doctors and as per son was putting off these symptoms as he did not want to come to the hospital, but finally was convinced by his son to come to the ED. As per son he has also been a bit forgetful over the past few weeks. On ROS , denies any pain/ headaches/ SOB/ palpitations/ cough/ nausea/ vomiting/ dizziness/ sensory deficits/ myalgias/ urinary or bowel changes/ weight changes. Head CT performed and showed nonhemorrhagic hypodensities in right frontoparietal irwin radiata/centrum semiovale concerning for recent internal border zone infarct. Chronic right thalamic lacunar infarct. No evidence of acute hemorrhage. Spoke with son in detail and informed him of the results and explained how these can be etiology for his deficits. The son indicated the patient was taking aspirin at home, cconfirmed to be 81 mg. MRI brain completed and showed acute right infarct between right MCA, BREADING MACHINE TENDER vascular territories. Scattered acute right frontal lobe infarcts. Several acute infarcts in superior aspect of left frontal and parietal lobe. 2 acute microinfarcts in left centrum semiovale. Lipid profile reviewedand LDL 161, patientstarted on statin 80 mg. Echo also reviewed with normal left ventricular function and thickness. Confirmed the patient was taking 81 mg aspirin at home and therefore should now be on 325 mg daily. Discussed with them importance of optimization of hyperlipidemia and statin. 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 Monitor blood pressure, maintain <140/90.
[2019-11-12] MEDS ORDERED: ASPIRIN 325 MG TABLET PO SCH (10:00)
--- NOTE | 2019-11-12 11:56 | PN ---
Progress Note, SHUTTLELESS LOOM WEAVER - Note Progress Note: Selected Entries 11/12/19 11/12/19 11/12/19 00:59 02:00 04:00 Breakfast Temperature 98 F 97.4 F L 98.2 F 11/12/19 11:53 Breakfast 100% Temperature Laboratory Tests 11/11/19 06:50 WBC 5.5 On reg diet/thin liquids
--- NOTE | 2019-11-12 13:16 | DS ---
Physical Exam: SUBJECTIVE: Patient seen and examined. Currently in not any acute distress. Left upper extremity weakness present. Asymptomatic and afebrile. Denies f/c/n/v/d/sob/cp OBJECTIVE: Vital Signs Period Temp Pulse Resp BP Sys/Tabares Pulse Ox Last 24 Hr 97.4 F-98.2 F 55-61 18-20 125-148/70-85 95 PHYSICAL EXAM GENERAL: The patient is awake, alert, and fully oriented, in no acute distress. EYES: PERRL, extraocular movements intact, sclera anicteric, conjunctiva clear. NECK: Trachea midline, full range of motion, supple. LUNGS: Breath sounds equal, clear to auscultation bilaterally, no wheezes, no crackles, no accessory muscle use. HEART: Regular rate and rhythm, S1, S2 without murmur, rub or gallop. ABDOMEN: Soft, nontender, nondistended, normoactive bowel sounds, no guarding, no rebound, no hepatosplenomegaly, no masses. EXTREMITIES: 2+ pulses, warm, well-perfused, no edema. NEUROLOGICAL: Cranial nerves II-XII intact. Normal speech. LUE >LLE motor drift, 4/5 strength & handgrip. R extremities 5/5 motor strength. Sensory intact throughout. PSYCH: Normal mood, normal affect. SKIN: Warm, dry, normal turgor, LABS CBC,CMP WBC 5.5 K/mm3 (4.0-10.0) 11/11/19 06:50 RBC 5.34 M/mm3 (4.00-5.60) 11/11/19 06:50 Hgb 14.8 GM/dL (11.7-16.9) 11/11/19 06:50 Hct 44.6 % (35.4-49) 11/11/19 06:50 MCV 83.4 fl (80-96) 11/11/19 06:50 MCH 27.7 pg (25.7-33.7) 11/11/19 06:50 MCHC 33.2 g/dl (32.0-35.9) 11/11/19 06:50 RDW 14.3 % (11.9-15.9) 11/11/19 06:50 Plt Count 208 K/MM3 (134-434) 11/11/19 06:50 MPV 7.7 fl (7.5-11.1) 11/11/19 06:50 Absolute Neuts (auto) 3.3 K/mm3 (1.5-8.0) 11/11/19 06:50 Neutrophils % 59.3 % (42.8-82.8) 11/11/19 06:50 Lymphocytes % 29.5 % (8-40) D 11/11/19 06:50 Monocytes % 7.4 % (3.8-10.2) 11/11/19 06:50 Eosinophils % 3.0 % (0-4.5) 11/11/19 06:50 Basophils % 0.8 % (0-2.0) 11/11/19 06:50 Nucleated RBC % 0 % (0-0) 11/11/19 06:50 Sodium 138 mmol/L (136-145) 11/11/19 06:50 Potassium 4.0 mmol/L (3.5-5.1) 11/11/19 06:50 Chloride 109 mmol/L (98-107) H 11/11/19 06:50 Carbon Dioxide 20 mmol/L (21-32) L 11/11/19 06:50 Anion Gap 10 MMOL/L (8-16) 11/11/19 06:50 BUN 19.8 mg/dL (7-18) H 11/11/19 06:50 Creatinine 1.2 mg/dL (0.55-1.3) 11/11/19 06:50 Est GFR (CKD-EPI)AfAm 66.73 11/11/19 06:50 Est GFR (CKD-EPI)NonAf 57.57 11/11/19 06:50 POC Glucometer 71 UNITS (80-120) 11/10/19 23:29 Random Glucose 90 mg/dL (74-106) 11/11/19 06:50 Hemoglobin A1c % 5.9 % (4.2-6.3) 11/11/19 09:21 Calcium 8.5 mg/dL (8.5-10.1) 11/11/19 06:50 Magnesium 1.9 mg/dL (1.8-2.4) 11/10/19 23:13 Total Bilirubin 0.6 mg/dL (0.2-1) 11/11/19 06:50 AST 21 U/L (15-37) 11/11/19 06:50 ALT 45 U/L (13-61) 11/11/19 06:50 Alkaline Phosphatase 61 U/L (45-117) 11/11/19 06:50 B-Natriuretic Peptide 148.5 pg/ml (5-450) 11/10/19 23:13 Total Protein 6.4 g/dl (6.4-8.2) 11/11/19 06:50 Albumin 3.4 g/dl (3.4-5.0) 11/11/19 06:50 Triglycerides Cancelled 11/11/19 09:22 Cholesterol Cancelled 11/11/19 09:22 Total LDL Cholesterol Cancelled 11/11/19 09:22 HDL Cholesterol Cancelled 11/11/19 09:22 TSH 43.40 uIU/ml (0.358-3.74) H D 11/10/19 23:13 Free T4 0.72 ng/dl (0.76-1.16) L 11/10/19 23:13 Current Medications Aspirin (Asa -) 325 mg PO DAILY [facility] Last Admin: 11/12/19 11:24 Dose: 325 mg Atorvastatin Calcium (Lipitor -) 80 mg PO HS [facility] Last Admin: 11/11/19 21:30 Dose: 80 mg Heparin Sodium (Porcine) (Heparin -) 5,000 unit SQ TID [facility] Last Admin: 11/12/19 06:15 Dose: 5,000 unit Levothyroxine Sodium (Synthroid -) 25 mcg PO DAILY@0700 [facility] Last Admin: 11/12/19 06:15 Dose: 25 mcg Microbiology 11/11/19 01:36 Urine - Urine Clean Catch Urine Culture - Final NO GROWTH OBTAINED HOSPITAL COURSE: Date of Admission:11/11/19 79 y/o M PMH CVA w/ LLE residual deficits presenting for new onset left sided weakness admitted for acute ischemic stroke seen on CT Head showing non- hemorrhagic hypodensities in right frontoparietal irwin radiata/centrum semiovale, chronic right thalamic lacunar infarct concerning for recent internal border zone infarct. Chronic right thalamic lacunar infarct. No evidence of acute hemorrhage. MRI brain completed and showed acute right infarct between right MCA, SENIOR MECHANICAL DEVELOPMENT ENGINEER vascular territories. Scattered acute right frontal lobe infarcts. Several acute infarcts in superior aspect of left frontal and parietal lobe. 2 acute microinfarcts in left centrum semiovale. Pt was immediately started on ASA 325 and high dose Statins. Neuro was consulted, Dr. Barrientos saw pt and discussed with me the need to continue current regime. However, primary team determined that it was necessary to transfer pt for higher level of care. Transfer started and pt is scheduled to be picked up. Echo also reviewed with normal left ventricular function and thickness CT Head showing non-hemorrhagic hypodensities in right frontoparietal irwin radiata/centrum semiovale, chronic right thalamic lacunar infarct concerning for recent internal border zone infarct. Chronic right thalamic lacunar infarct. No evidence of acute hemorrhage. MRI brain completed and showed acute right infarct between right MCA, SENIOR MECHANICAL DEVELOPMENT ENGINEER vascular territories. Scattered acute right frontal lobe infarcts. Several acute infarcts in superior aspect of left frontal and parietal lobe. 2 acute microinfarcts in left centrum semiovale. Date of Discharge: 11/12/19 Minutes to complete discharge: 40 Discharge Summary Problems reviewed: Yes Reason For Visit: TRANSIENT ISCHEMIC ATTACK Condition: Fair - Instructions Diet, Activity, Other Instructions: 79 y.o. M PMH CVA w/ LLE residual deficits presenting for new onset LUE weakness as well as increasing LLE weakness found to have multiple acute infarcts found on brain MRI. Carotid US was done that showed large plaques at R bulb and proximal ICA c/w near occlusion or occluded vessel; mod to large plaques at L common carotid with at least 50-59% stenosis. Pt evaluated by neuro with recommendation to start ASA and high dose statin. Pt was subsequently transferred to tertiary care facility for further management. Disposition: TRANSFER ACUTE CARE/OTHER HOSP - Home Medications Comprehensive Discharge Medication List: Ambulatory Orders Aspirin [ASA -] 81 mg PO DAILY 03/17/17 Atorvastatin Ca [Lipitor] 80 mg PO HS 03/17/17 This patient is new to me today: Yes Date on this admission: 12/01/19 Emergency Visit: Yes ED Registration Date: 11/11/19 Care time: The patient presented to the Emergency Department on the above date and was hospitalized for further evaluation of their emergent condition. Critical Care patient: No - Discharge Referral Referred to [id number] Med [facility].C.: No ATTENDING PHYSICIAN STATEMENT I saw and evaluated the patient. I reviewed the resident's note and discussed the case with the resident. I agree with the resident's findings and plan as documented. SUBJECTIVE: OBJECTIVE: ASSESSMENT AND PLAN:
--- NOTE | 2019-11-12 14:34 | PN ---
Teaching Attending Note Name of Resident: Ash Jovel ATTENDING PHYSICIAN STATEMENT I saw and evaluated the patient. I reviewed the resident's note and discussed the case with the resident. I agree with the resident's findings and plan as documented. SUBJECTIVE: Feeling well. Some residual L sided weakness. No headache/visual disturbance/limb numbness or weakness. OBJECTIVE: Afebrile, Hemodynamically Stable. Last Vital Signs Temp Pulse Resp BP Pulse Ox 98.2 F 60 18 126/84 95 11/12/19 04:00 11/12/19 04:00 11/12/19 04:00 11/12/19 04:00 11/12/19 02:00 HEENT- Atraumatic, Normcoephalic. Heart - S1 S2, RRR Lungs - clear to auscultation Abdomen - Soft, non-tender. Bowel Sounds normal. Extremities - no edema, no calf tender. Neuro - AAO x 2. Mild LUE/LLE weakness 4/5. Laboratory Tests 11/10/19 11/10/19 11/10/19 23:13 23:13 23:13 WBC 8.6 RBC 5.61 H Hgb 15.7 Hct 47.1 MCV 84.0 MCH 28.0 MCHC 33.3 RDW 14.6 Plt Count 248 MPV 7.6 Absolute Neuts (auto) 4.3 Neutrophils % 49.8 Lymphocytes % 37.2 D Monocytes % 9.0 Eosinophils % 2.6 Basophils % 1.4 Nucleated RBC % 0 PT with INR INR PTT (Actin FS) Sodium 141 Potassium 3.9 Chloride 109 H Carbon Dioxide 25 Anion Gap 7 L BUN 22.3 H Creatinine 1.2 Est GFR (CKD-EPI)AfAm 66.73 Est GFR (CKD-EPI)NonAf 57.57 POC Glucometer Random Glucose 69 L Hemoglobin A1c % Calcium 9.2 Magnesium 1.9 Total Bilirubin 0.5 AST 24 ALT 50 Alkaline Phosphatase 69 B-Natriuretic Peptide 148.5 Total Protein 7.0 Albumin 3.7 Triglycerides Cholesterol Total LDL Cholesterol HDL Cholesterol TSH 43.40 H D Free T4 0.72 L Urine Color Urine Appearance Urine pH Ur Specific Norris Urine Protein Urine Glucose (UA) Urine Ketones Urine Blood Urine Nitrite Urine Bilirubin Urine Urobilinogen Ur Leukocyte Esterase Urine WBC (Auto) Urine RBC (Auto) Urine Casts (Auto) U Epithel Cells (Auto) Urine Bacteria (Auto) 11/10/19 11/10/19 11/11/19 23:13 23:29 01:36 WBC RBC Hgb Hct MCV MCH MCHC RDW Plt Count MPV Absolute Neuts (auto) Neutrophils % Lymphocytes % Monocytes % Eosinophils % Basophils % Nucleated RBC % PT with INR 11.90 INR 1.01 PTT (Actin FS) 36.3 Sodium Potassium Chloride Carbon Dioxide Anion Gap BUN Creatinine Est GFR (CKD-EPI)AfAm Est GFR (CKD-EPI)NonAf POC Glucometer 71 Random Glucose Hemoglobin A1c % Calcium Magnesium Total Bilirubin AST ALT Alkaline Phosphatase B-Natriuretic Peptide Total Protein Albumin Triglycerides Cholesterol Total LDL Cholesterol HDL Cholesterol TSH Free T4 Urine Color Yellow Urine Appearance Clear Urine pH 5.0 Ur Specific Norris 1.023 Urine Protein Negative Urine Glucose (UA) 1+ H Urine Ketones Negative Urine Blood 1+ H Urine Nitrite Negative Urine Bilirubin Negative Urine Urobilinogen 0.2 Ur Leukocyte Esterase Negative Urine WBC (Auto) 1 Urine RBC (Auto) 2 Urine Casts (Auto) 4 U Epithel Cells (Auto) 0.6 Urine Bacteria (Auto) 1.7 11/11/19 11/11/19 11/11/19 06:50 06:50 09:21 WBC 5.5 RBC 5.34 Hgb 14.8 Hct 44.6 MCV 83.4 MCH 27.7 MCHC 33.2 RDW 14.3 Plt Count 208 MPV 7.7 Absolute Neuts (auto) 3.3 Neutrophils % 59.3 Lymphocytes % 29.5 D Monocytes % 7.4 Eosinophils % 3.0 Basophils % 0.8 Nucleated RBC % 0 PT with INR INR PTT (Actin FS) Sodium 138 Potassium 4.0 Chloride 109 H Carbon Dioxide 20 L Anion Gap 10 BUN 19.8 H Creatinine 1.2 Est GFR (CKD-EPI)AfAm 66.73 Est GFR (CKD-EPI)NonAf 57.57 POC Glucometer Random Glucose 90 Hemoglobin A1c % 5.9 Calcium 8.5 Magnesium Total Bilirubin 0.6 AST 21 ALT 45 Alkaline Phosphatase 61 B-Natriuretic Peptide Total Protein 6.4 Albumin 3.4 Triglycerides 115 Cholesterol 219 H Total LDL Cholesterol 161 H HDL Cholesterol 41 TSH Free T4 Urine Color Urine Appearance Urine pH Ur Specific Norris Urine Protein Urine Glucose (UA) Urine Ketones Urine Blood Urine Nitrite Urine Bilirubin Urine Urobilinogen Ur Leukocyte Esterase Urine WBC (Auto) Urine RBC (Auto) Urine Casts (Auto) U Epithel Cells (Auto) Urine Bacteria (Auto) 11/11/19 09:22 WBC RBC Hgb Hct MCV MCH MCHC RDW Plt Count MPV Absolute Neuts (auto) Neutrophils % Lymphocytes % Monocytes % Eosinophils % Basophils % Nucleated RBC % PT with INR INR PTT (Actin FS) Sodium Potassium Chloride Carbon Dioxide Anion Gap BUN Creatinine Est GFR (CKD-EPI)AfAm Est GFR (CKD-EPI)NonAf POC Glucometer Random Glucose Hemoglobin A1c % Calcium Magnesium Total Bilirubin AST ALT Alkaline Phosphatase B-Natriuretic Peptide Total Protein Albumin Triglycerides Cancelled Cholesterol Cancelled Total LDL Cholesterol Cancelled HDL Cholesterol Cancelled TSH Free T4 Urine Color Urine Appearance Urine pH Ur Specific Norris Urine Protein Urine Glucose (UA) Urine Ketones Urine Blood Urine Nitrite Urine Bilirubin Urine Urobilinogen Ur Leukocyte Esterase Urine WBC (Auto) Urine RBC (Auto) Urine Casts (Auto) U Epithel Cells (Auto) Urine Bacteria (Auto) Current Medications Generic Name Dose Route Start Last Admin Trade Name Freq PRN Reason Stop Dose Admin Aspirin 325 mg 11/12/19 10:00 11/12/19 11:24 Asa - PO 325 mg DAILY CRUZITO Administration Atorvastatin Calcium 80 mg 11/11/19 22:00 11/11/19 21:30 Lipitor - PO 80 mg HS CRUZITO Administration Heparin Sodium (Porcine) 5,000 unit 11/11/19 06:00 11/12/19 06:15 Heparin - SQ 5,000 unit TID CRUZITO Administration Levothyroxine Sodium 25 mcg 11/12/19 07:00 11/12/19 06:15 Synthroid - PO 25 mcg DAILY@0700 CRUZITO Administration Home Medications Medication Instructions Recorded Aspirin [ASA -] 81 mg PO DAILY 03/17/17 Atorvastatin Ca [Lipitor] 80 mg PO HS 03/17/17 ASSESSMENT AND PLAN: 79 year old male with history of CVA presented to the ED with 1 day history of left sided weakness. 1. 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 Prescribed statin but does not take. LDL 161. Started on Lipitor. Echo (TTE) - normal. Needs TTE. 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 Discussed with Stroke Team at [facility] - Dr. Mcclain - accepted for transfer for further work-up and specialist evaluation by Neurology and Vascular Surgery. Neurologist at [facility] will decide re: escalating Antiplatelet therapy. Neurologicaly Stable. Medically optimized for transfer to [facility]. 2. Hypotyroidism TSH 43.4/free T4 0.72 Started on Levothyroxine. Will need further out-patient work-up. 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
[2019-11-12] MEDS: ATORVASTATIN CA 80 MG TABLET (FP) PO SCH (21:26)
[2019-11-13 01:06] VITALS: BP 138/82; PULSE 52; TEMP 98.1
== END 2019-11-13 03:27 | disposition short-term general hospital (02) | DRG 65 ==
LOC: JER 22:44 → JERBED 11-11 03:43 → J4W 11-12 01:46
PROVIDERS: ADMIT Internal Medicine
DX: I63.131 Cerebral infarction due to embolism of right carotid artery (principal); I69.354 Hemiplegia and hemiparesis following cerebral infarction affecting left non-dominant side; E03.9 Hypothyroidism, unspecified; R29.703 NIHSS score 3
CPT/HCPCS: 36415; 70450-TC; 70544-TC; 70551-TC; 71045-TC-FY; 80053; 80061; 81003; 82962; 83036; 83721; 83735; 83880; 84439; 84443; 85025; 85610; 85730; 87086; 93005; 93010; 93306-TC; 93880-TC; 97116-GP; 97161-GP; 99285-25; J1644